=== PATIENT | female | born 1970 | race Caucasian/White ===

== ENCOUNTER 2017-06-23 16:17 | Emergency (ER) | payer BC ==
[~2017-06-23] VITALS: Ht 165.1 cm; Wt 70.3 kg
[2017-06-23] MEDS ORDERED: KEFLEX500 MG PO (16:51)
== END 2017-06-23 17:11 | disposition home or self-care (01) ==
LOC: ED 16:17
DX: S61.211A Laceration without foreign body of left index finger without damage to nail, initial encounter (principal); F17.200 Nicotine dependence, unspecified, uncomplicated; Z88.5 Allergy status to narcotic agent; X58.XXXA Exposure to other specified factors, initial encounter
CPT/HCPCS: 99283

== ENCOUNTER 2017-07-10 15:51 | Emergency (ER) | payer BC ==
[~2017-07-10] VITALS: Ht 165.1 cm; Wt 70.3 kg
[~2017-07-10 15:51] MED LIST: KEFLEX500 MG PO
--- NOTE | 2017-07-11 05:43 | EKG ---
[facility] [address] [facility] [place], [place] [address] Signed Normal sinus rhythm Normal ECG No previous ECGs available Confirmed by LANCE BRIDGES MD ([id number]) on 07/11/2017 5:43:26 AM Electronically Signed By: LANCE BRIDGES MD 07/11/17 0543 PATIENT NAME: HARESH SILVA Electrocardiogram DATE OF : 70 PHYSICIAN: LANCE BRIDGES MD REPORT #: [id number] REPORT IS CONFIDENTIAL AND NOT TO BE RELEASED WITHOUT AUTHORIZATION
== END 2017-07-10 17:28 | disposition home or self-care (01) ==
LOC: ED 15:51
DX: R00.2 Palpitations (principal); I10 Essential (primary) hypertension; F17.200 Nicotine dependence, unspecified, uncomplicated; Z88.5 Allergy status to narcotic agent
CPT/HCPCS: 71046; 80053; 84484; 85025; 93005; 93010; 99284

== ENCOUNTER 2018-08-16 03:44 | Emergency (ER) | payer BC ==
[~2018-08-16] VITALS: Ht 165.1 cm; Wt 67.6 kg
[2018-08-16] MEDS ORDERED: CARAFATE1 GM PO (03:57)
[2018-08-16] MEDS ORDERED: OMEPRAZOLE40 MG PO (03:57)
[2018-08-16] MEDS ORDERED: PERCOCET 5-3251 EACH PO (06:18)
== END 2018-08-16 06:30 | disposition home or self-care (01) ==
LOC: ED 03:44
DX: R10.13 Epigastric pain (principal); F17.200 Nicotine dependence, unspecified, uncomplicated; Z88.5 Allergy status to narcotic agent; Z79.899 Other long term (current) drug therapy
CPT/HCPCS: 74177; 80053; 81001; 83690; 85025; 99284-25; J1170; J2060; J2405; J7030; Q9967

== ENCOUNTER 2018-08-19 06:05 | Day surgery (SDC) | payer BC ==
[~2018-08-19] VITALS: Ht 165.1 cm; Wt 67.6 kg
[~2018-08-19 06:05] MED LIST changes: +CARAFATE1 GM PO; +OMEPRAZOLE40 MG PO; +PERCOCET 5-3251 EACH PO
--- NOTE | 2018-08-19 08:30 | NUR ---
08/19/18 0830 Mildred Markham 0822-PATIENT ARRIVED TO PACU ON 2L NC NONAROUSABLE. LAYING LEFT LATERAL. ABDOMEN SOFT. RR EVEN. CO2 35.
--- NOTE | 2018-08-20 07:47 | OR ---
[facility] [address] [place] [place], [place] [address] Signed DATE OF OPERATION: 08/19/2018 SURGEON: Deirdre Barrera MD PREOPERATIVE DIAGNOSIS: Unspecified mass in transverse colon. POSTOPERATIVE DIAGNOSES: 1. Unspecified mass at 42 cm (tattoo). 2. A 10 mm sessile polyp in distal right colon at 65 cm (tattoo). 3. A 4 mm polyp at 7 cm in rectum. PROCEDURES PERFORMED: 1. Colonoscopy with hot biopsy injection of tattoo at 65 and 42 cm. 2. Placement of clip at 42 cm. ESTIMATED BLOOD LOSS: None. INDICATIONS: Haresh is a 48-year-old female, I have known for quite a few years. In the last couple weeks, she has been having dull and then sharp epigastric abdominal pain. She had been to her primary care provider's office. She was started on Carafate and omeprazole. Her symptoms were not improving. Her pain had worsened, so she went to the emergency room. She had a CT scan of the abdomen and pelvis performed, and there was some abnormal thickening in the transverse colon in the central upper abdomen. There was some soft tissue density next to this unspecified colonic mass measuring around 3.8 x 22 cm in the transverse mesocolon. In addition, there are some prominent lymph nodes in the area measuring up to 2.8 x 1.2 cm. No associated obstruction. She was asked to see me the next day in the office for followup. I met with Haresh, her , and her daughter. We had a long discussion regarding the findings. We sent her for a CT scan of the chest and this was unremarkable for metastatic disease. We also sent her for a CEA level and it came back normal at 3.76. In addition, we talked about colonoscopy at length in order to evaluate the mass as well as rule out a synchronous lesion. I gave them a booklet on colonoscopy. We looked at that together in detail. We also reviewed the written instructions for the bowel prep line by line. She also understands the need for IV conscious sedation. They had expressed understanding and wished to proceed. PROCEDURE NOTE: Haresh was taken into our endoscopy suite and placed in the left lateral decubitus Electronically Signed By: DEIRDRE BARRERA MD 08/20/18 0747 PATIENT NAME: HARESH SILVA OPERATIVE REPORT DATE OF : 70 REPORT #: [id number] PHYSICIAN: DEIRDRE BARRERA MD PCP: TAMMIE LILLY MD REPORT IS CONFIDENTIAL AND NOT TO BE RELEASED WITHOUT AUTHORIZATION [facility] [address] [place], [place] [address] Signed position. She was given IV sedation with 11 mg of Versed and 200 mcg of fentanyl to cover the entire case. A digital rectal exam was performed and this was unremarkable. She had just a small polyp in the rectum, which we removed with a hot biopsy forceps. The scope had been passed and we went beyond the mass and out into the cecum itself. Her prep was quite good. We took pictures throughout for photodocumentation. We could easily see the appendiceal orifice, the tolowa dee-ni''s foot, and the ileocecal valve. Her cecum was 85 cm. The scope was slowly withdrawn back at 65 cm and what appeared to be the distal right colon was a 10 mm sessile polyp. It took several bites of the hot biopsy forceps to remove that and destroy it completely. We left a tattoo next to that to hayley its location. We slowly withdrew the scope further, and at 42 cm, we found the circumferential sessile mass. It occupies probably half if not more of the circumference of the colon. It obviously very concerning. We took several biopsies of this with our cold biopsy forceps. We then placed a tattoo next to it along with a clip to hayley its location. We will take an abdominal x-ray in recovery room. There was no diverticulosis. The rest of the colon was unremarkable. No additional lesions in the rectum. Upon retroflexion of the scope, there was no additional pathology noted above the anal canal. After this, the gas was suctioned out and the colonoscope removed. Haresh tolerated the procedure quite well. RECOMMENDATIONS: We are going to check an abdominal x-ray for a metallic clip in the recovery room. I will have Haresh back in the office between 5 and 10 days once we get the pathology report back. We specifically need to evaluate the lesion in the distal right colon to plan our surgery. I will review all this with Haresh and her family. Deirdre Barrera MD ALB/MODL /[id number] cc: Deirdre Barrera MD [facility] Jody Lilly MD Copies: DEIRDRE BARRERA MD Electronically Signed By: DEIRDRE BARRERA MD 08/20/18 0747 PATIENT NAME: HARESH SILVA ALANIS OPERATIVE REPORT DATE OF : 70 REPORT #: [id number] PHYSICIAN: DEIRDRE BARRERA MD PCP: TAMMIE LILLY MD REPORT IS CONFIDENTIAL AND NOT TO BE RELEASED WITHOUT AUTHORIZATION [address] [place], [place] [address] Signed TAMMIE LILLY MD ~ Electronically Signed By: DEIRDRE BARRERA MD 08/20/18 0747 PATIENT NAME: HARESH SILVA OPERATIVE REPORT DATE OF : 70 REPORT #: [id number] PHYSICIAN: DEIRDRE BARRERA MD PCP: TAMMIE LILLY MD REPORT IS CONFIDENTIAL AND NOT TO BE RELEASED WITHOUT AUTHORIZATION
== END 2018-08-19 09:35 | disposition home or self-care (01) ==
LOC: DS 06:05 → OPS 06:05 → DS 06:45 → OPS 09:35
PROVIDERS: Colon & Rectal Surgery
PROC: 0DBK8ZZ Excision of Ascending Colon, Via Natural or Artificial Opening Endoscopic (ICD-10-PCS; 2018-08-19)
PROC: 0DBP8ZZ Excision of Rectum, Via Natural or Artificial Opening Endoscopic (ICD-10-PCS; 2018-08-19)
PROC: 0DBE8ZZ Excision of Large Intestine, Via Natural or Artificial Opening Endoscopic (ICD-10-PCS; 2018-08-19)
PROC: 3E0H8GC Introduction of Other Therapeutic Substance into Lower GI, Via Natural or Artificial Opening Endoscopic (ICD-10-PCS; principal; 2018-08-19 06:45)
DX: C18.9 Malignant neoplasm of colon, unspecified (principal); D12.2 Benign neoplasm of ascending colon; D12.6 Benign neoplasm of colon, unspecified; K62.1 Rectal polyp; F17.210 Nicotine dependence, cigarettes, uncomplicated; Z88.5 Allergy status to narcotic agent
CPT/HCPCS: 74018; 84703; 99153; G0500; J2250; J3010; J7120

== ENCOUNTER 2018-08-30 10:41 | Inpatient (IN) | payer BC ==
[~2018-08-30] VITALS: Ht 165.1 cm; Wt 67.6 kg
--- NOTE | 2018-09-03 14:34 | NUR ---
09/03/18 1434 Ani Marcos 1423 PATIENT ARRIVES TO PACU SLEEPING, OPENS EYES WITH VERBAL STIMULI, BUT NON VERBAL. RESP EVEN AND UNLABORED, MASK AT 6 LITERS. 1430 PATIENT AWAKE OFF/ON, MOANING, C/O PAIN. RESP EVEN AND UNLABORED, MASK OFF, ROOM AIR SATS 100%.
--- NOTE | 2018-09-03 15:49 | NUR ---
PT REPORTS SHARP PAIN OF 10/10 TO ABDOMEN, 0.5MG IV DILAUDID ADMINISTERED -SEE EMAR. PT MAINTAINING O2 SATS IN MID 90'S ON RA. TERESA DRAIN EMPTIED OF SS DRAINAGE. CALL LIGHT ANDH20 IN REACH. JAEL SMALL AMOUNT OF DRAINAGE SURROUNDING TERESA DRAIN SITE SO DSG REENFORCED WITH 4X4 GUAZE. PT DENIES NAUSEA, SOB OR ANY OTHRE SYMPTOMS. ICE TO ABDOMEN.
--- NOTE | 2018-09-03 16:03 | NUR ---
Admin dilaudid 0.5mg ivp for reports of 10/10 abd pain.
--- NOTE | 2018-09-03 16:37 | NUR ---
PT REPORTS SHARP PAIN THAT IS BACK UP TO 10/10 TO ABDOMEN. PRN IV DILAUDID ADMINISTERED SEE EMAR. PT CONTINUES TO DENY ANY OTHER SYMPTOMS, NEEDS OR CONCERNS. CALL LIGHT AND H20 IN REACH. CPOX READING REMAINS IN MID 'S.
--- NOTE | 2018-09-03 17:25 | NUR ---
Pt reports 10/10 sharp abd pain. Pt requested and received prn iv dilaudid. Pt remains on cpox. Call light and h20 in reach. No further needs/concerns voiced. family at bedside.
--- NOTE | 2018-09-03 17:28 | NUR ---
PATIENT RESTING IN BED. IN ROOM. VITAL SIGNS AND I&O DONE. PATIENT COMPLAINS ABOUT PAIN. RN NOTIFIED. CALL LIGHT WITHIN REACH. NO OTHER NEEDS AT THIS TIME
--- NOTE | 2018-09-03 17:33 | NUR ---
MED REC COMPLETE
--- NOTE | 2018-09-03 18:23 | NUR ---
PT RESTING SUPINE IN BED, ALERT AND ORIENTED. PT REPORTS 9/10 PAIN WILL ADMINISTER PRN OPIOD. CALL LIGHT AND H20 IN REACH. O2 SAT MAINTAINING IN MID 90'S ON ROOM AIR. CPOX REMAINS IN PLACE.
--- NOTE | 2018-09-03 19:00 | NUR ---
ROUNDED ON PATIENT RESTING IN BED WITH VISITORS AT BEDSIDE. ICE PACK IN PLACE. SCDs IN PLACE. CPOX,WNL. WHITE BOARD UPDATED. PT APPEARS TO BE UNCOMFORTABLE IN BED WITH ABD GUARDING AND TENSING. DAY SHIFT RNCRYSTAL ON PHONE WITH DR. BARRERA FOR POTENTIAL PLAN OF ENTERPRISE SYSTEMS ADMINISTRATOR PUMP FOR PT. CALL LIGHT WITHIN REACH. POSSESSIONS AT BEDSIDE. PT DENIES ANYMORE NEEDS AT THIS TIME.
--- NOTE | 2018-09-03 19:49 | NUR ---
patient says she is still thirsty so i gave her a half cup of ice and in 4hrs she will recieve the other half. i also gave patient a hard candy. she stated she was in pain and GOMEZ Lennon was notified. patients asked about the DIAGRAMMER AND SEAMER pump and i informed him we were waiting on the DRs order.
--- NOTE | 2018-09-03 20:15 | NUR ---
ASSESSMENT COMPLETE. MEDICATIONS ADMINISTERED PER ORDER. PT REPORTS PAIN A "OVER 10" ON A 10/10 PAIN RATING SCALE. SOUND RECORDING TECHNICIAN ADMINISTERED PRN PAIN MEDICATION PER ORDER WELL. AT 2039 PT REPORTS PAIN DECREASED TO A "5/10" IN ABD. PT DENIES NAUSEA AND FLATUS. PT REPORTS FEELING "SLIGHTLY BLOATED". CLEAR LUNG SOUNDS NOTED, DIM/CLEAR BASES, CPOX WNL. DRAIN SPONGES PLACED AROUND INSERTION SITE OF TERESA DRAIN. DRAINAGE EMPTIED FROM TERESA DRAIN, DRAINAGE CAN BE DESCRIBED SEROSANGUINOUS IN COLORATION THAT IS SLIGHTLY MORE ON THE PINK/RED SIDE. MIDLINE INCISION DRESSING ON ABD IS CDI, WITH SMALL AMOUNT OF SHADOWING PRESENT AROUND INSERTION SITE OF TERESA DRAIN. HYPO ACTIVE BOWEL TONES NOTED. SCDS IN PLACE. ICE IN PLACE ON ABD PER ORDER. PT DENIES CHEST PAIN, SHORTNESS OF BREATH OR DIFFICULTY BREATHING. INTITALLY WHEN NURSING STAFF ROUNDED ON PT, PATIENT WAS VISIBLY UNCOMFORTABLE/GRIMACING, AFTER INTERVENTIONS PT'S APPEARANCE APPEARED MORE COMFORTABLE. PT DENIES ANYMORE NEEDS AT THIS TIME. CALL LIGHT WITHIN REACH. POSSESSIONS AT BEDSIDE. PT TOLERATED ICE CHIPS AND HARD CANDY PROVIDED PER ORDER. IV ASSESSED, WNL.
--- NOTE | 2018-09-03 20:20 | NUR ---
SPOKE WITH DR BARRERA ABOUT NATIONAL SHORTAGE OF DILAUDID FOR WOOD MILLER. NEW ORDERS RECEIVED AND ENTERED TORBC.
--- NOTE | 2018-09-03 21:50 | NUR ---
ROUNDED ON PATIENT RESTING AWAKE IN BED. BUCKLE STRINGER PUMP SET UP AND INFUSING PER ORDER. EDUCATION PROVIDED TO PATIENT, PT EXPRESSED UNDERSTANDING OF BUCKLE STRINGER, PT DENIES QUESTIONS. BUCKLE STRINGER BUTTON WITHIN REACH OF PATIENT. RR: 16, PT AWAKE AND ALERT, PAIN "6/10" IN ABD, O2 SATS: 94% ON ROOM AIR. FRESH ICE PACK PROVIDED TO PATIENT. CALL LIGHT WITHIN REACH. PT DENIES ANYMORE NEEDS AT THIS TIME.
--- NOTE | 2018-09-03 21:52 | NUR ---
patients VS and I&Os are complete.
--- NOTE | 2018-09-03 22:57 | NUR ---
ROUNDED ON PATIENT RESTING IN BED, CPOX IS WNL. PT RATES PAIN A "4/10". RR IS 16. METEOROLOGICAL ENGINEER BUTTON IS WITHIN REACH OF PATIENT. PT DENIES ANYMORE NEEDS AT THIS TIME. CALL LIGHT WITHIN REACH.
--- NOTE | 2018-09-04 01:05 | NUR ---
PT AMBULATING IN HALLWAY WITH FORMS ANALYST AT THIS TIME.
--- NOTE | 2018-09-04 01:47 | NUR ---
ROUNDED ON PATIENT RESTING IN BED WITH EYES CLOSED, RESPIRATORY RATE IS EVEN AND UNLABORED. NO SIGN OF TENSING OR GRIMACING. RR: 14. CPOX, WNL. CALL LIGHT WITHIN REACH.
--- NOTE | 2018-09-04 03:15 | NUR ---
ASSESSMENT COMPLETE. PT DENIES CHEST PAIN, SHORTNESS OF BREATH, OR DIFFICULTY BREATHING. PT REPORTS PAIN IN ABD IS "6/10". SMALL AMOUNT OF SHADOWING ON MIDLINE DRESSING. SMALL AMOUNT OF SEROSANGUINOUS DRAINAGE AROUND TERESA DRAIN THAT CAN BE DESCRIBED TO BE MORE ON THE PINK/RED SIDE. NEW DRESSING PLACED AROUND TERESA INSERTION SITE WITH DRAIN SPONGES. PT STATES THAT MARKETING FINANCIAL ANALYST PUMP HAS BEEN ADEQUATELY CONTROLLING PAIN, HOWEVER PT MAKES OCCASIONAL FACIAL GRIMACES, PROVIDED EDUCATION TO PATIENT ABOUT MARKETING FINANCIAL ANALYST PUMP, PT EXPRESSED UNDERSTANDING. THIS RN ASSISTED PATIENT IN REPOSITIONING IN BED. CLEAR LUNG SOUNDS NOTED, CPOX IS WNL, HOWEVER PATIENT STATES THAT IT IS DIFFICULT TO TAKE FULL BREATHS, EDUCATION PROVIDED TO PT ABOUT USE OF INCENTIVE SPIROMETER BY CHARGE NURSE JONATHAN, PT EXPRESSED UNDERSTANDING. ICE IN PLACE. POSSESSIONS AT BEDSIDE. MARKETING FINANCIAL ANALYST BUTTON WITHIN REACH. CALL LIGHT WITHIN REACH. PT DENIES ANYMORE NEEDS AT THIS TIME.
--- NOTE | 2018-09-04 05:40 | NUR ---
ROUNDED ON PT RESTING AWAKE IN BED WITH FACIAL GRIMACING. PT RATES PAIN IS A "6/10" IN ABD. REPLACED DEFENSE ANALYST SYRINGE PER ORDER DUE TO PREVIOUS SYRINGE BEING EMPTY. RR: 18. ALERT AND ORIENTED. THIS RN AND CHARGE NURSE RN ASSISTED PT TO CHAIR. NEW GOWN PLACED ON PT. PROVIDED EDUCATION TO PT ABOUT USE OF DEFENSE ANALYST BUTTON, PT ACKNOWLEDGED AND EXPRESSED UNDERSTANDING OF EDUCATION. CALL LIGHT WITHIN REACH. DEFENSE ANALYST BUTTON WITHIN REACH. NEW ICE PACK PROVIED. PT DENIES ANYMORE NEEDS AT THIS TIME.
--- NOTE | 2018-09-04 06:25 | NUR ---
NOTIFIED DR. BARRERA ABOUT PT'S PAIN MANAGMENT AND DRAINAGE; FROM AND AROUND TERESA DRAIN. NEW ORDERS RECIEVED, ORDERS VERIFIED VIA READ BACK METHOD.
--- NOTE | 2018-09-04 06:55 | NUR ---
ROUNDED ON PATIENT SITTING UP IN CHAIR. PT REPORTS PAIN A "6/10", SCHEDULED MEDICATION ADMINISTERED PER ORDER. CALL LIGHT WITHIN REACH. PT DENIES ANYMORE NEEDS AT THIS TIME.
--- NOTE | 2018-09-04 08:10 | OR ---
[facility] [address] [place], [place] [address] Signed DATE OF OPERATION: 09/03/2018 SURGEON: Deirdre Barrera MD PREOPERATIVE DIAGNOSES: 1. Distal transverse colon. 2. Dysplastic polyp, mid right colon. POSTOPERATIVE DIAGNOSES: 1. Distal transverse colon. 2. Dysplastic polyp, mid right colon. PROCEDURES: 1. Extended right colectomy with stapled [id number] ileocolic anastomosis. 2. Placement of #10 flat drain retrogastric space gastric space, in was 2100 mL of crystalloid, out was 300 mL urine over 3 hours and 125 mL of blood. 3. Takedown of splenic flexure. FINDINGS: We could easily see our tattoos in the mid right colon and mid to distal transverse colon. She did have palpable lymphadenopathy in the transverse mesocolon. All palpable lymphadenopathy came out en bloc. Because of the two lesions, we decided that an extended right colectomy was more appropriate since our lesion in the right colon has dysplastic cells. A standard [id number]-wf-[id number] stapled anastomosis was performed. No evidence of any metastatic disease in the liver of the mesentery or the serosal surfaces. INDICATIONS: Haresh is a 48-year-old female whom I have known for many years in our community. She has been having pain in her epigastric area. The Carafate and omeprazole were not helping. She ended up going to the emergency room. A CT scan showed some abnormal thickening in the transverse colon along with some density alongside the colon and lymphadenopathy. However, there was no obstruction. I had met her in my office that same morning and a few days later, we had her in the endoscopy suite for a full colonoscopy after a full bowel prep. Indeed, she had a mass at 42 cm. We placed a clip next to that along with her tattoo and our abdominal x-ray in recovery room showed this to be in the mid to distal transverse colon. In addition, we found a sessile polyp in the mid to distal right colon and we placed a tattoo in that area as well. The pathology came back with some dysplastic cells. We sent her for a CEA level and it came back high normal at 3.76. She had a CT scan of her chest and there was no evidence of Electronically Signed By: DEIRDRE BARRERA MD 09/04/18 0810 PATIENT NAME: HARESH SILVA OPERATIVE REPORT DATE OF : 70 REPORT #: [id number] PHYSICIAN: DEIRDRE BARRERA MD PCP: TAMMIE LILLY MD REPORT IS CONFIDENTIAL AND NOT TO BE RELEASED WITHOUT AUTHORIZATION [facility] [address] [place], [place] [address] Signed any metastatic disease in the chest. I had met with Harehs and her family several times. We reviewed the above findings. I gave them a [employer] brochure on colorectal polyps and cancer. We discussed the concept of two synchronous lesions. Initially, we talked about a transverse colectomy, but we also discussed the possibility of an extend right colectomy given her two lesions. We had reviewed the expected intraop and postop course. They understand there is risk including, but not limited to bleeding, infection, scarring, change in contour of the skin, damage to bowel, anastomotic leak, incisional hernias, and other unforeseen comorbidities including pneumonias, heart attacks, and deep vein thrombosis. They had expressed understanding and wished to proceed. PROCEDURE NOTE: I met with Haresh in our preop area. Although, anxious Haresh has been very strong in her disposition. She actually had her family leave and go home, so she could focus and concentrate. After our discussion, then we took Haresh into the operating room and we placed her in a supine position under general endotracheal tube anesthesia. She had received preoperative antibiotics along with subcutaneous heparin. SCDs were utilized. A Eden catheter was inserted with return of clear yellow urine without difficulty. She then underwent bilateral tap blocks by our nurse try out person. She was then prepped and draped in the usual sterile fashion. A standard periumbilical midline incision was made and carried through the abdomen with the help of the cautery. The abdomen was explored and we could easily see our two tattoos and could easily palpate both lesions. We could easily palpate the lymphadenopathy in transverse mesocolon. We did not see any peritoneal studding nor see or feel any lesions over the liver. After this, we placed our Bookwalter retractor and then we freed up the splenic flexure with the help of the cautery down to the mid left colon. This gave us plenty of length on the left side. I then switched sides of the table and similarly took down the right hepatic flexure all the way down past the cecum and a short distance from the terminal ileum. The mesocolon was divided between Pean clamps and 0 Vicryl ties. Multiple clips were also used during the dissection. All palpable lymphadenopathy was removed. We divided the distal portion of the transverse colon with a linear stapler as well as the terminal ileum. The entire specimen was then passed off the field and opened on the back table by our circulating nurse. Again, both lesions were easily visible. The wound was then irrigated and suctioned out until clear. We placed a #10 flat drain behind the stomach and over top of the pancreas in the duodenum. This was brought out through the right upper quadrant laterally and held in place with 2-0 nylon suture at the level of skin. We had irrigated out the abdomen until clear. We then brought the terminal ileum up to the distal transverse colon. We performed a standard sgwp-el-ercw stapled anastomosis with THELMA 75 mm stapler. We brought the mesenteric size together with the help of interrupted silk sutures. We opened the terminal ileum and the colon on the corners and we brought that together with stapler and then added some additional silk Lembert stitches over top of the staple line in the crotch of the anastomosis. We used a TA-60 Electronically Signed By: DEIRDRE BARRERA MD 09/04/18 0810 PATIENT NAME: HARESH SILVA OPERATIVE REPORT DATE OF : 70 REPORT #: [id number] PHYSICIAN: DEIRDRE BARRERA MD PCP: TAMMIE LILLY MD REPORT IS CONFIDENTIAL AND NOT TO BE RELEASED WITHOUT AUTHORIZATION [facility] [address] [place], [place] [address] Signed stapler to completely remove the previous two staple lines on the end of the terminal ileum and the colon as well as closed the holes in the ileum and the colon. Gentle cautery was undertaken along the staple line and several areas were oversewn with silk suture. The anastomosis is widely palpably patent. We then closed the mesenteric rent with a running #0 Vicryl suture. This brought stomach back down over the pancreas and over top of that drain. All bowel was deemed to be in good position. We irrigated the abdomen once again and suctioned out until clear. The left lateral portion of the omentum that was remaining was brought across the small bowel towards the midline. The midline fascia was then closed with interrupted #1 PDS sutures. The wound was irrigated and suctioned out until clear. We brought the dermis back together with interrupted 2-0 Monocryl sutures. The skin edges were then reapproximated with brianna. Dry gauze and tape were then applied. Haresh's Eden catheter was left in place. She was awakened from anesthesia, extubated in the OR, and taken to recovery room in stable condition. Deirdre Barrera MD ALB/MODL /[id number] cc: MD Tammie Bryson MD Copies: DEIRDRE BARRERA MD, LOHITH VEERAPPA MD ~ Electronically Signed By: DEIRDRE BARRERA MD 09/04/18 0810 PATIENT NAME: HARESH SILVA OPERATIVE REPORT DATE OF : 70 REPORT #: [id number] PHYSICIAN: DEIRDRE BARRERA MD PCP: TAMMIE LILLY MD REPORT IS CONFIDENTIAL AND NOT TO BE RELEASED WITHOUT AUTHORIZATION
--- NOTE | 2018-09-04 08:35 | NUR ---
IN TO SEE PATIENT PT SITTING UP IN CHAIR, MODERATE SS DRAINAGE FROM TERESA SITE SO SATURATED DSG REMOVED AND SITE CLEANSED WITH NS. DR BARRERA IN TO SEE PATIENT STATES DSGS MAY BE REMOVED AND PT MAY SHOWER WHEN SHE IS READY. PT PROVIDED WITH 4 OZ OF ICE CHIPS PER HER REQUEST AND A BAG OF ICE FOR ABDOMEN. PER MD KYLE ALSO REMOVED AFTER 10CC OF STERILE WATER REMOVED FROM [place], PT TOLERATED WELL. CALL LIGHT AND H2O IN REACH AND PT DNEIES FURTHER NEEDS/CONCERNS. FAMILY IN TO SEE PATIENT. VSS.
--- NOTE | 2018-09-04 09:04 | NUR ---
PT SITITNG UP IN CHAIR, PT STATES PAIN IS TOLERABLE AT 4/10 TO ABD. TERESA DRAIN EMPTIED, ASSESSMENT COMPLETED. IV TYLENOL INFUSING -SEE EMAR. PT DENIES FURTHER NEEDS/CONCERNS. CALL LIGHT AND H20 IN REACH.
--- NOTE | 2018-09-04 10:10 | NUR ---
PT AMBULATING IN HALLS, STATES PAIN IS TOLERABLE. PT TOLERATES TWO LAPS AROUND NURSES STATION AND BACK TO BED, SCD'S APPLIED AND IV PUMP PLUGGED BACK INTO WALL. CALL LIGHT AND H2O IN REACH. PT DENIES FURHTER NEEDS/CONCERNS.
--- NOTE | 2018-09-04 11:45 | NUR ---
PT ASSISTED UP TO BATHROOM WITH SBA. PT DENIES DIZZINESS AND AMBULATES WITH SLOW BUT STEADY GAIT AND AGREES TO USE CALL LIGHT WHEN FINISHED.
--- NOTE | 2018-09-04 11:56 | NUR ---
PT USES CALL LIGHT AND WAS ASSISTED BACK TO BED IV AND CPOX PLUGGED BACK IN. CALL LIGHT AND H20 IN REACH AND PT DENIES FURTHER NEEDS/CONCERNS. O2 SAT 98% ON ROOM AIR AND PT STATES PAIN IS TOLERABLE. FAMILY AT BEDSIDE VISITING WITH PATIENT.
--- NOTE | 2018-09-04 15:02 | NUR ---
IV SCHOOL OPERATIONS MANAGER PUMP BEEPING, SCHOOL OPERATIONS MANAGER MORPHINE VIAL EMPTY. MORPHINE VILE REPLACED AND SHIFT TOTALS CLEARED WITH GOMEZ DISLA. cALL LIGHT AND H20 IN REACH.
--- NOTE | 2018-09-04 16:57 | NUR ---
IV PUMP BEEPING IN TO SEE PATIENT, PUMP READS DISTAL OCCLUSION, FLUSHED AND STRAIGHTENED IV TUBING AND IV MAINENANCE FLUIDS NOW INFUSING AD ORDERED RATE. PT STATES SHE IS COMFORTABLE. 8 OZ OF ICE CHIPS PROVIDED PER HER REQUEST. CALL LIGHT AND H2O IN REACH. PT DENIES FURTHER NEEDS/CONCERNS.
--- NOTE | 2018-09-04 18:25 | NUR ---
IN TO CHECK ON PT. PT RESTING SUPINE IN BED WATCHING TV. VS'S TAKEN AN DI/O'S DOCUMENTED. HAT NOT IN TOILET PT REPORTS TKAING HAT OUT TO HAVE BM BUT WAS UNABLE TO HAVE BM. REEDUCATED PT ON IMPORTANCE OF USING HAT WHEN VOIDING SO URINE CAN ACURATLEY BE DOCUMENTED. VS'S STABLE. PT DENIES SOB AND STATES PAIN IS WELL CONTROLLED WITH DISTRICT COMMERCIAL SUPERINTENDENT PUMP. CALL LIGHT AND ICE CHIPS IN REACH. PT DENIES FURTHER NEEDS/CONCERNS. FAMILY AT BEDSIDE VISITING PT AND PT WATCHING TV AND APPEARS TO BE IN NO ACUTE DISTRESS.
--- NOTE | 2018-09-04 18:44 | NUR ---
PT APPEARED TO HAVE A GOOD DAY. PT HAD TOLERABLE PAIN WITH FILE CONVERSION OPERATOR MORPHINE PAIN PUMP AND SCHEDULED TORADOL AND OFIRMEV. IV PATENT WITH MAINTENANCE FLUIDS RUNNING. PT AMBULATES IN HALLS WITH SBA. O2 SATS MAINTAINED IN MID TO HIGH 90'S PER CPOX THROUGHOUT THE SHIFT. PT DENIES NASUEA, SOB OR ANY OTHER SYMPTOMS TODAY. TERESA DRAINING SS DRAINAGE; APPROX 70MLS THIS SHIFT. PT TOLERATED ICE CHIPS AND HARD CANDY TODAY DENIES FEELING BLOATED AND REPORTS INCREASED APPETITE. BT'S ACTIVE BUT PT DENIES HAVING ANY FLATULANCE THIS SHIFT. PT HAS BEEN VOIDING CLEAR YELLOW URINE. AFEBRILE THROUGHOUT THE DAY. MIDLINE INCISION WELL APPROXIMATED WITH NO S/SX'S OF INFECTION.
--- NOTE | 2018-09-04 19:13 | NUR ---
IN ROOM FOR REPORT, PT IS AWAKE IN BED AND HAS VISITORS IN THE ROOM. SHE DENIES NEEDS AT THIS TIME. CALL LIGHT IS WITHIN REACH.
--- NOTE | 2018-09-04 20:35 | NUR ---
IN ROOM TO ASSESS PT AND ADMINISTER MEDICATIONS. PT REPORTS LUIS E ARE COMING OUT OF HER INCISION. ONE OF THE LUIS E UNDER THE UMBILICUS IS LIFTING OUT AND NOT VERY SECURE AND THE BOTTOM DISTAL STAPLE IS LIFTED BUT STILL IN. COVERED MIDLINE INCISION BACK UP WITH ABD PAD TO PROTECT LUIS E. GAUZE AROUND TERESA DRAIN HAS A SCANT AMOUNT OF SEROSANGUINOUS DRAINAGE ON IT AND PT REPORTS WHEN SHE IS UP WALKING IT DRIPS. NEW GAUZE IN PLACE AND REINFORCED WITH FOAM TAPE. PT EXPRESSES ANXIETY ABOUT THE UNCERTAINTY OF HER PROGNOSIS. GAVE WHAT INFORMATION IS AVAILABLE BUT ADVISED HER TO ASK THE DOCTOR QUESTIONS WHEN HE SEES HER TOMORROW. SHE WOULD LIKE TO TAKE A WALK, WILL HAVE DORENE SERNA ASSIST HER. SHE DENIES FURTHER NEEDS. CALL LIGHT IS CLOSE.
--- NOTE | 2018-09-04 21:27 | NUR ---
patient wanted to take a walk, we did 4 laps. She was expressing her concern about her health and how she felt she wasnt getting a lot of info about whats going on. I informed GOMEZ Armenta and she is going to do some digging and see if she is able to answer some questions.
--- NOTE | 2018-09-04 22:40 | NUR ---
VS & I&O ENTERED. CHANGED GAUZE AROUND TERESA DRAIN WHICH HAD A SMALL AMOUNT OF SEROSANGUINOUS FLUID. EMPTIED TERESA DRAIN 25 MLS. PT HAS A VISITOR IN THE ROOM AT THIS TIME. SHE REPORTS PAIN AT 6/10. REMINDED HER TO USE HER ENERGY OPERATIONS VICE PRESIDENT PUMP NEEDED. PT DENIES FURTHER NEEDS AT THIS TIME. CALL LIGHT IS WITHIN REACH.
--- NOTE | 2018-09-05 00:55 | NUR ---
PT IS RESTING WITH EYES CLOSED, RR IS EVEN AND NONLABORED. CPOX IN PLACE AND CALL LIGHT IS WITHIN REACH.
--- NOTE | 2018-09-05 02:07 | NUR ---
PT IS RESTING WITH EYES CLOSED, RESPIRATIONS ARE EVEN AND NONLABORED, CPOX ON. CALL LIGHT IS WITHIN REACH.
--- NOTE | 2018-09-05 03:22 | NUR ---
PT IS RESTING WITH EYES CLOSED, RESPIRATIONS ARE EVEN AND NONLABORED ON CPOX. CALL LIGHT IS WITHIN REACH.
--- NOTE | 2018-09-05 05:16 | NUR ---
PT IS RESTING COMFORTABLY AT THIS TIME, SHE DENIES NEEDS. CALL LIGHT IS CLOSE.
--- NOTE | 2018-09-05 06:35 | NUR ---
ASSISTED PT TO THE RESTROOM 1PA. SHE WAS IN A LOT OF PAIN 10/27 BECAUSE SHE SLEPT WELL AND DID NOT PUSH HER MANAGER STRATEGIC DEVELOPMENT BUTTON BEFORE GETTING OUT OF BED. SHE IS BACK IN BED AT THIS TIME AND HAS FRESH ICE IN PLACE. SHE DENIES FURTHER NEEDS, CALL LIGHT IS WITHIN REACH.
--- NOTE | 2018-09-05 07:10 | NUR ---
PT RESTING SUPINE IN BED REPORTS SOME NAUSEA AND PAIN GOMEZ CASTILLO IN TO ADMINISTER ZOFRAN. CALL LIGHT IN REACH. PT ENCOURAGED TO PUSH SUPPORT SERVICES REP BUTTON WHEN SHE IS HAVING PAIN UNTIL IT IS AT A TOLERABLE LEVEL AND PT ADMITS TO NOT HAVING PRESSED IT MUCH THROUGHOUT THE NIGHT. FRESH ICE BAG APPLIED TO ABDOMEN PER GOMEZ CASTILLO. BEDSIDE REPORT RECEIVED. SUPPORT SERVICES REP PUMP IN REACH. PT DENIES FURTHER NEEDS/CONCERNS AND AGREES TO USE CALL LIGHT IF PAIN LEVEL AND NAUSEA DON'T SUBSIDE.
--- NOTE | 2018-09-05 09:12 | NUR ---
Pt resting supine in bed, eyes closed, pulse oximiter reading 86% on room air, pt encouraged to take some deep breathes and o2 sat returns to mid 90's but within a minute pt desats again to high 80's to low 90's so pt placed on 2lpnc a this time and is satting in mid 90's. Pt denies pain. Pt encouraged not to press sales mgr button unless pain is becomming intolerable and pt agrees.
--- NOTE | 2018-09-05 10:33 | NUR ---
PT REPORTS BURNING TO RFA IV SITE. ATTEMPTED TO FLUSH WITH NS BUT PT REPORTS INCREASED BURNING WITH SMALL AMOUNT OF NS. FLUIDS PLACED ON STANDBY PENDING NEW IV START. IV SITE DOES NOT APPEAR RED, OR SWOLLEN AND PT DENIES NUMBNESS OR TINGLING. GOMEZ GARNETT IN TO ATTEMPT NEW IV START. CALL LIGHT AND H2O IN REACH. PT DENIES FURTHER NEEDS/CONCERNS.
--- NOTE | 2018-09-05 12:20 | NUR ---
Pt resting supine in bed, was assisted up to restroom per her request. Pt reports increased pain today over all. Pt educated that this may be because she was receiving iv tylenol and iv toradol yesterday and that this is no longer ordered. Pt states pain is tolerable at rest and that she hasn't been pushing laundrette owner pump as often as she could. Pt encouraged to use laundrette owner pump if pain begins to worsen/as needed. Call light and h2o in reach. Pt denies further needs/concerns.
--- NOTE | 2018-09-05 14:05 | NUR ---
PT RESTING SUPINE IN BED, ALERT AND ORIENTED AND WATCHING TV, STATES PAIN IS TOLERABLE AND DENIES NAUSEA OR SOB. ASSESSMENT COMPLETED. CALL LIGHT AND H20 IN REACH. PT MAINTAINING SATS IN MID TO HIGH 90'S ON 2LPNC AND DENIES NEEDS/CONCERNS AT THIS TIME.
--- NOTE | 2018-09-05 15:48 | NUR ---
PT REPORTS PAIN OF 6/10, MORPHINE DIRECTOR OF VOCATIONAL TRAINING EMPTY SO MORPHINE VIAL REPLACED AND DOSE VERIFIED WITH GOMEZ MCKEON. PT ASSISTED UP TO RESTROOM WITH SBA AND BACK TO BED CPOX IN PLACE READS MID 90'S ON 1LPNC. PT IS ALERT AND ORIENTED WITH RR 16. CALL LIGHT AND H20 IN REACH. WARM BLANNKET PROVIDED FOR COMFORT.
--- NOTE | 2018-09-05 18:25 | NUR ---
PT UP TO AMBULATE IN HALLWAY WITH FAMILY. PT STEADY ON FEET.
--- NOTE | 2018-09-05 18:42 | NUR ---
Pt assisted back into bed after ambulating a lap around nursing stations. Pt states she tolerated ambulating well with slow but steady gait and only sba. Call light in reach and cpox back in place and scds on as well. Pt denies further needs/concerns.
--- NOTE | 2018-09-05 19:00 | NUR ---
SHIFT REPORT RECEIVED FROM DAYSHIFT GOMEZ DUBOSE AT BESIDE. PT RESTING IN BED AND IS AWAKE. CPOX IN PLACE WITH 1LNC. O2 SAT 95%, HR 68. FAMILY IN ROOM. PT DENIES ADDITIONAL NEEDS. CALL LIGHT AND SEX WORKER OR ESCORT PUMP IN REACH.
--- NOTE | 2018-09-05 20:11 | NUR ---
NEW BAG OF IV FLUIDS INFUSING PER MD ORDERS, IV SITE WNL. PT PREPARING TO AMBULATE IN HALLWAY WITH DAUGHTERS. DENIES NEEDS AT THIS TIME, CALL LIGHT IN REACH.
--- NOTE | 2018-09-05 20:15 | NUR ---
ASSESSMENT COMPLETE, SCHEDULED MEDICATIONS GIVEN (SEE EMAR). VSS, PT ON CPOX. 1LNC IN PLACE. NO DISTRESS NOTED. VOCAL ARTIST PUMP DOSE VERIFIED BY THIS RN AND CLEARED WITH 15.4 MG TOTAL. SECOND RN MARCELA IN ROOM FOR CLARIFICATION. PT A/OX4, RATES PAIN 4-5, DESCRIBES TOLERABLE. ABDOMINAL INCISION OPEN TO AIR, WELL APPROXIMATED, LUIS E IN PLACE. TERESA DRAINED BY KAREEM JULY AND DOCUMENTED, SEROSANGUINEOUS TO SANGUINEOUS IN COLOR. PT STATES, "I FEEL LIKE MY BELLY'S HARD". ABDOMEN ASSESED, NO OBVIOUS DEFORMATION OR DISCOLORATION NOTED. WILL MONITOR. CHICKEN BROTH AT BEDSIDE PER PT REQUEST. NO FURTHER NEEDS, CALL LIGHT IN REACH.
--- NOTE | 2018-09-05 21:00 | NUR ---
HELPED PT STAND AT THE SIDE OF THE BED WHILE I FIXED HER BED. HELPED HER GET REPOSITIONED BACK INTO BED. BEDSIDE TABLE AND CALL LIGHT IN REACH.
--- NOTE | 2018-09-05 21:46 | NUR ---
ROUNDED CHARGE. PATIENT IS RESTING IN BED. PATIENT DENIES ANY COMMENTS, QUESTIONS OR CONCERNS. NO NEED NOTED.
--- NOTE | 2018-09-05 22:20 | NUR ---
PT AMBULATING IN HALLWAY IN HALLWAY WITH DAUGHTERS. PT TOLERATING AMBULATION WELL, DENIES NEEDS AT THIS TIME.
--- NOTE | 2018-09-06 00:45 | NUR ---
MORPHINE INFORMATION ASSURANCE ANALYST PUMP CLEARED AND REPLACED. DOSE VERIFIED BY THIS RN AND FIELD HAULER. PT REPORTS 6/10 PAIN. PT INSTRUCTED TO USE INFORMATION ASSURANCE ANALYST BUTTON IF NEEDED. CALL LIGHT AND INFORMATION ASSURANCE ANALYST BUTTON IN REACH. IV FLUIDS INFUSING PER MD ORDERS, IV SITE WNL.
--- NOTE | 2018-09-06 01:31 | NUR ---
CPOX ALARMING. PT ON RA, O2 SAT MID 80'S. PT PLACED ON 1LNC, O2 SAT MAINTAINING IN UPPER 90'S. HR 58. PT REPORTS PAIN IN ABDOMEN, PUSHED TURBINATED BONE GRINDER PUMP. PT DENIES FURTHER NEEDS. ICE PACK IN PLACE TO ABDOMEN. CALL LIGHT IN REACH. IV FLUIDS INFUSING PER MD ORDERS.
--- NOTE | 2018-09-06 02:05 | NUR ---
ASSESSMENT COMPLETE, NO NEW CONCERNS OR ISSUES. PT A/OX4, CPOX IN PLACE WITH 1LNC. PT REPORTING INCREASE IN PAIN, FACIAL GRIMACING NOTED. PRN IV TYLEOL ADMINISTERED. IV SITE WNL. IV FLUIDS PER MD ORDERS ALSO INFUSING. INCISION SHANNA, WELL APPROXIMATED, LUIS E NOTED. TERESA DRAIN EPTIED, 55 MLS NOTED, SEROSANGUINEOUS IN COLOR. DRESSING TO TERESA DRAIN CDI. PT DENIES ADDITIONAL NEEDS. CALL LIGHT IN REACH.
--- NOTE | 2018-09-06 05:23 | NUR ---
PT SLEPT ON AND OFF THIS SHIFT. PT A/OX4, VSS. CPOX IN PLACE. PT ON 1LNC PRN FOR DESAT R/T ARBOR END MAINSPRING FORMER MORPHINE AND WHEN SLEEPING. PT SBA WITH AMBULATION, USES CALL LIGHT APPROPERAITELY. NPO, CAN HAVE 1 CUP CLEAR LIQUIDS Q8H. D5LR @100MLS/HR, IV SITE WNL. ARBOR END MAINSPRING FORMER PUMP IN PLACE. PAIN ALSO CONTROLLED WITH PRN TORADOL AND TYLENOL. INCISION SHANNA, LUIS E IN PLACE, WELL APPROXIMATED. NO BM THIS SHIFT, VOIDING QS.
--- NOTE | 2018-09-06 05:41 | NUR ---
VSS AND RECORDED. I&O'S ALSO COMPLETE. TERESA DRAIN EMPTIED, 30 MLS SEROSANGUINEOUS IN COLOR. DRESSING CDI. NO CHANGES OR CONCERNS REGARDING ABD INCISION. WELL APPROXIMATED, SPANISH MEDICAL INTERPRETER, LUIS E NOTED. ROOM TIDED. CALL LIGHT AND REHABILITATION CASEWORKER PUMP BUTTON IN REACH. NO FURTHER NEEDS.
--- NOTE | 2018-09-06 08:07 | NUR ---
IN TO SEE PT. PT AWAKE, ALERT AND ORIENTED X3. EDUCATION PROVIDED TO PT REGARDING GARDE MANAGER USE. PT RECEPTIVE TO GARDE MANAGER EDUCATION AND DEMONSTRATES PROPER SELF USE. PT REPORTS ABD PAIN IS 6/10, SHE USED GARDE MANAGER INDEPENDENTLY FOR THIS PAIN. PT DENIES NAUSEA. DIET ADVANCED TO FULL LIQUIDS, BREAKFAST ORDERED. CPOX INTACT, 02 SAT LEVEL 95%. NO NEEDS AT THIS TIME. CALL LIGHT WITHIN REACH.
--- NOTE | 2018-09-06 09:36 | NUR ---
CALLED TO REPORT PATIENT IS DROWSY RESP RATE 12 BPM. CARE TEAM DISCUSSED PAIN PLAN IN AM MEETING, SUGGEST TORDOL, TYLENOL, IV POSSIBLE D/C CONTINUOUS ELECTRICAL TECHNOLOGY INSTRUCTOR DOSE. SAID TO D/C CONTINUOUS ELECTRICAL TECHNOLOGY INSTRUCTOR DOSE, AND GIVE TYLENOL NEEDED IV PER ORDER,NO TORDOL.
--- NOTE | 2018-09-06 09:39 | NUR ---
PATRICIA PHARMACY ASSISTED IN D/C CONTINUOUS ELECTRIC METER INSPECTOR DOSE AT THIS TIME PER TELEPHONE ORDER
--- NOTE | 2018-09-06 10:55 | NUR ---
GOMEZ PURI CHARGE AND MYSELF STOPPED THE 2MG CONTINUOUS RATE ON MORPHINE BELT CONVEYOR DRIER. PT EDUCATION PROVIDED.
--- NOTE | 2018-09-06 11:11 | NUR ---
THIS RN ASSUMING CARE OF PT. REPORT RECEIVED FROM GOMEZ FERNANDES. PT RESTING IN BED AND STATES THE PAIN "IS A LOT WORSE SINCE I ATE." PT ENCOURAGED TO USE PSYCHOLOGICAL OPERATIONS. PT STATES "IT'S NOT ENOUGH." IV TYLENOL GIVEN. WARM PACK PROVIDED. NOON ASSESSMENT DONE. WOUND EDGES APRXIMATED. PT EXPRESSES ANXIETY OVER CA DIAGNOSIS. ONCOLOGY EDUCATION DONE, THERAPUTIC COMMUNICATION. PT ENCOUAGED TO WAIT FOR 'S INSTRUCTIONS AND RESULTS OF TESTING. O2 SATURATION AT 86% ON ROOM AIR. PULSE OXIMITER READJUSTED. PT PLACED ON 1L O2 BY FAUSTINA WITH GOOD RESULTS, O2 SATURATION NOW 95%. PT RESTING AND WATCHING TV. NO ADDITIONAL REQUESTS OR COMPLAINTS. CALL LIGHT WITHIN REACH.
--- NOTE | 2018-09-06 12:28 | NUR ---
PT SITTING UP IN BED, SPEAKING VERY LITTLE. GOMEZ DIEGO IN RM. ASKED PT HOW PAIN WAS-SHE SAID 7. RELAYED THIS TO GOMEZ DIEGO SHE WAS CHARTING. I COULD TELL THAT PT DID NOT WANT TO VISIT, EXTENDED A BLESSING. WILL FOLLOW NEEDED
--- NOTE | 2018-09-06 13:33 | NUR ---
PT AMBULATING IN CRANE. 4 LAPS DONE. PT STOPS AT NURSES STATION AND REQUESTS THAT A NEW IV BE PLACED "BECAUSE THIS ONE WAS BEEPING ALL NIGHT LONG AND IT KEEPS BEEPING." NEW IV TO BE PLACED ONCE PT RETURNS TO ROOM.
--- NOTE | 2018-09-06 13:48 | NUR ---
THIS RN TO ROOM TO DISCUSS IV PLACEMENT WITH PT. PT STATES SHE DOESN'T LIKE THE IV WHERE IT IS "BECUASE IT BEEPS ALL THE TIME, WHENEVER I MOVE." BENEFITS AND RISKS OF NEW PIV DISCUSSED WITH PT. PT VERBALIZES UNDERSTANDING AND STATE SHE WANTS A NEW PIV. PT STATES SHE WOULD LIKE PIV IN RIGHT ARM/HAND. PIV STARTED PER PROTOCOL IN RIGHT HAND, BLOOD RETURN NOTED. FLUID AND SASH FINISHER INFUSION MOVED TO RIGHT HAND PIV SITE. NO ADDITIONAL REQUESTS OR COMPLAINTS AT THIS TIME. PT VISITING WITH FAMILY. CALL LIGHT WITHIN REACH.
--- NOTE | 2018-09-06 16:07 | NUR ---
AFTERNOON ASSESSMENT DUE. PT RESTING IN BED VISITING WITH FRIEND AND DAUGHTER. PT HAS QUESTIONS ABOUT HER PROCEEDURE. QUESTIONS ANSWERED, EDUCATION DONE. PT STATES "I FEEL SO MUCH BETTER NOW THAT I UNDERSTAND WHAT HAPPENED." SBA UP TO RESTROOM. ASSESSMENT DONE. PT REPROTS 4/10 PAIN, PT USING NAME PLATE STAMPER PUMP. PT ENCORUAGED TO DRINK FLUIDS TOLERATED. PT DENIES ADDITIONAL REQUESTS OR COMPLAINTS. CALL LIGHT WITHIN REACH.
--- NOTE | 2018-09-06 18:08 | NUR ---
THIS RN TO ROOM TO CHECK ON PT. PT RESTING WITH EYES CLOSED, RR = 16BPM. O2 SATURATION 99% ON 1L O2 BY NC WITH HR OF 60. FAMILY AT BEDSIDE. NO ADDITIONAL REQUESTS OR COMPLAINTS AT THIS TIME. BED RAILS UP. CALL LIGHT WITHIN REACH.
--- NOTE | 2018-09-06 18:18 | NUR ---
PT HERE POST OP AFTER TRANVERSE COLECTOMY. SBA AND TOLERATING FULL LIQUID DIET WITH SOME PAIN. NO NAUSEA THIS SHIFT. HEDIS REVIEW NURSE IN PLACE, CONTINIOUS RATE REMOVED, PT ACTIVATED DOSE CONTINUES. CPOX 86-95%, CONTINUES TO USE 1L O2 BY NC ESPICIALLY WHEN RESTING. MIDLINE INCISION C/D/I WITH EDGES APROXIMATED. PT UP TO AMBULATE IN HALLS MULTIPLE TIMES. TERESA DRAIN CONTINUES TO SHOW SERIOUS ANGUNIOUS FLUID. VODING QUANTITY SUFFICIENT. PT USES CALL LIGHT APPROPRAITLY.
--- NOTE | 2018-09-06 18:42 | NUR ---
PATIENT UP TO BATHROOM AND BACK TO BED, 1PA. PATIENT IN PAIN, RN NOTIFIED. CALL LIGHT IN REACH. NO FURTHER NEEDS AT THIS TIME.
--- NOTE | 2018-09-06 19:20 | NUR ---
BEDSIDE REPORT RECEIVED FROM GOMEZ DIEGO. PT BACK IN ROOM AFTER AMBULATING IN HALLWAY. IVF INFUSING WNL ORDERED. PT RATES PAIN 7/10 IN ABDOMEN, PUSHING TIME STUDY OBSERVER BUTTON AT THIS TIME. CARTRIDGE REPLACED. PT UP IN CHAIR. CALL LIGHT IN LAP. FAMILY IN ROOM.
--- NOTE | 2018-09-06 21:39 | NUR ---
PT ASSESSMENT COMPLETE. SBA TO RESTROOM FOR VOID. PT RATES PAIN 5/10 IN ABDOMEN, STATES "HEAVY FEELING" IN LOWER ABDOMEN. ABDOMEN SOFT, TENDER, BOWEL TONES ACTIVE X 4. MIDLINE INCISION CDI WITH LUIS E OPEN TO AIR. TERESA DRAINING SS FLUID. PT ASSISTED TO REPOSITION TO SIDE. PRN TYLENOL IV ADMINISTERED. HEAT PACKS IN PLACE. CALL LIGHT IN REACH. VSS. SCDS ON. LIGHTS OFF IN ROOM.
--- NOTE | 2018-09-07 00:19 | NUR ---
CHECKED ON PT, RESTING IN BED WITH EYES CLOSED. APPEARS TO BE SLEEPING. SPO2 WNL ON RA. CONT. PULSE OX IN PLACE PER POLICY. SCDS ON. LIGHTS OFF IN ROOM.
--- NOTE | 2018-09-07 02:20 | NUR ---
CHECKED ON PT. APPEARS TO BE SLEEPING, LYING ON BACK WITH EYES CLOSED. BREATHING EQUAL AND NON-LABORED. SPO2 WNL ON RA, CONT. PULSE OX IN PLACE.
--- NOTE | 2018-09-07 03:44 | NUR ---
CALL LIGHT ANSWERED, PT C/O 10/10 PAIN IN ABDOMEN. INCISION CDI AT MIDLINE OPEN TO AIR, LUIS E INTACT. BOWEL TONES ACTIVE X 4. ABDOMEN SOFT. TENDER WITH PALPATION. TERESA DRAIN EMPTIED 100 MLS SEROSANGUINOUS FLUID. PRN ZOFRAN ADMINISTERED FOR NAUSEA. SBA TO AMBULATE AROUND HALLWAY, PT TOLERATED WELL. PRN PAIN MEDICATION ADMINISTERED AND PT USING DELINEATOR PUMP, PAIN DECREASES TO 5/10 PAIN. PT NOW UP IN CHAIR. WATER AND CALL LIGHT IN REACH. SPO2 WNL ON 1L OXYGEN BY NC. BREATHING SHALLOW. PT BRACING WITH PILLOW INSTRUCTED TO DEEP BREATHE.
--- NOTE | 2018-09-07 06:11 | NUR ---
MD IN PT ROOM. PT UP IN CHAIR. STATES "PAIN IS OKAY, JUST WAKING UP". NO REQUESTS AT THIS TIME. CALL LIGHT IN REACH. IVF INFUSING WNL.
--- NOTE | 2018-09-07 06:26 | NUR ---
PT AMBULATING IN HALLWAY THIS SHIFT X 2. HORTICULTURAL AGENT AND PRN PAIN MEDICATIONS FOR PAIN CONTROL. EDUCATION PROVIDED THROUGHOUT SHIFT, PT ANXIOUS REGARDING PLAN OF CARE. SOME NAUSEA REPORTED THIS SHIFT, NO EMESIS, PRN NAUSEA MEDICATION ADMINISTERED. TERESA DRAIN EMPTIED 100 MLS SS FLUID. MIDLINE INCISION CDI WITH LUIS E. BOWEL TONES ACTIVE X 4, ABD SOFT, TENDER W PALPATION. NO FLATUS NOTED. VOIDING QS.
--- NOTE | 2018-09-07 07:13 | NUR ---
REPORT RECEIVED FROM GOMEZ BURKS. PT RESTING IN BED. CPOX NOT IN PLACE. PT ON ROOM AIR. PT REPORTS 5/10 PAIN. PT ENCORUAGED TO USE HOSE HANDLER. CPOX REPLACED, O2 AT 95% ON ROOM AIR. HR 70. PUMP ALARMING, IV FLUID BAG REPLENISHED. PT DENIES ADDITIONAL REQUESTS OR COMPLAINTS AT THIS TIME. CALL LIGHT WITHIN REACH.
--- NOTE | 2018-09-07 10:01 | NUR ---
MORNING ASSESSMENT AND MEDICATIONS DUE. PT REPORTS 5/10 PAIN THAT "IS WORSE WHEN I EAT." SBA UP TO RESTROOM. PT VOIDS WITHOUT ISSUE. PT UP TO CHAIR. ASSESSMENT DONE. WARM PACK AND APPLE JUICE PROVIDED. MEDICATINOS GIVEN. PT VISITING WITH . NO ADDITIONAL REQUESTS OR COMPLAINTS AT THIS TIME.
--- NOTE | 2018-09-07 10:49 | NUR ---
THIS RN TO ROOM TO CHECK ON PT. PT RATES PAIN AT 4/10 AND STATES SHE HAS NOT USED HER BUSINESS BROKER FOR 45 MINUTES. PT ENCORUAGED TO USE BUSINESS BROKER BUT STATES "I DONT' THINK I NEED IT RIGHT NOW. PT DENIES ADDITONAL REQUESTS OR COMPLAINTS AT THIS TIME. CPOX IN PLACE, O2 AT 94% ON ROOM AIR. NO ADDITIONAL REQUESTS OR COMPLAINS AT THIS TIME. CALL LIGHT WITHIN REACH.
--- NOTE | 2018-09-07 11:18 | NUR ---
NOON ASSESSMENT DUE. THIS RN TO BEDSIDE. PT RESTING IN CHAIR. PT REPORTS 4/10 PAIN AND STATES SHE IS USING HER BIOFUELS PRODUCT MANAGER PUMP LESS. PT FINISHED BREAKFAST, DECREASED PAIN WITH SMALL INFREQUENT BITES. PT ENCORUAGED TO USE BIOFUELS PRODUCT MANAGER PUMP NEEDED. WOUND WNL, EDGES APROXIMATED. NO DRAINAGE NOTED. PT DEMONSTRATES USE OF I.S. REACHING 1750. PT CONTINUES ON 1L O2 BY NC WHILE NAPPING. NO ADDITIONAL REQUESTS OR COMPLAINTS AT THIS TIME. CALL LIGHT WITHIN REACH. FAMILY AT BEDSIDE.
--- NOTE | 2018-09-07 13:58 | NUR ---
THIS RN TO ROOM TO CHECK ON PT. PT RESTING IN BED WITH EYES CLOSED, RESPIRATIONS EVEN AND UNLABORED. O2 SATURATION AT 93% ON 1L BY NC. HR = 63. BED RAILS UP. CALL LIGHT WITHIN REACH.
--- NOTE | 2018-09-07 14:31 | NUR ---
PATIENT IN BED RESTING. CALL LIGHT IN REACH. NO FURTHER NEEDS AT THIS TIME.
--- NOTE | 2018-09-07 14:46 | NUR ---
VISITORS ARRIVED TO SEE PT. PT FOUND UP IN RESTROOM ALONE. PT ASSISTED UP TO CHAIR. FALL PRECAUTIONS REVIEWED WITH PT. PT VERBALIZES UNDERSTANDING. PT NOT REQUIRING O2 WHILE UP AND AWAKE. O2 SATURATION AT 97% ON ROOM AIR. PT REPORTS 5/10 PAIN. PT ENCORUAGED TO USE ELECTRONICS SCALE TESTER. PT VISITING WITH FRIENDS. CALL LIGHT WITHIN REACH.
--- NOTE | 2018-09-07 14:52 | NUR ---
SHOWER OFFERED. PT STATED THAT SHE WOULD CALL WHEN SHE WANTED ONE.
--- NOTE | 2018-09-07 16:31 | NUR ---
PT HERE POST TRANSVERSE COLECTOMY. PT MOVING WITH SBA, AMBULATED MULTIPLE TIMES THIS SHIFT. PT TOLERATING FULL LIQUID DIET THIS SHIFT WITH LESS PAIN. COPX REMAINS IN PLACE. PT CONTINUES TO REQUIRE 1L O2 WHEN NAPPING. PAIN WELL CONTROLED THIS SHIFT WITH STEAM PRESS OPERATOR. MIDLINE INCISION C/D/I WITH EDGES WELL APROXIMATED. VOIDING QUANTITY SUFFICIENT. NO NAUSEA THIS SHIFT. PT USING CALL LIGHT APPROPRIATLY.
--- NOTE | 2018-09-07 18:49 | NUR ---
PT CALL LIGHT ON. PT AWAKENS FROM NAP AND REPORTS PUMP IS ALARMING AND SHE IS IN PAIN. THIS RN TO ROOM. DISTAL OCCLUSION, PUMP RESTARTED. PT ENCOURAGED TO USE CORRECTIONAL MANAGER. PT PUSHES BUTTON. PLAN MADE FOR PAIN CONTROL TONIGHT. PT WOULD LIKE TO BE WOKEN UP FOR PAIN CONTOL REMINDERS Q2 HOURS. PASSED OFF DURING HAND OFF REPORT. PT DENIES ADDITIONAL REQUESTS OR COMPLAINTS. CALL LIGHT WITHIN REACH.
--- NOTE | 2018-09-07 19:20 | NUR ---
CHARGE NURSE ROUNDS. PT IN BED, WITH FAMILY AT BEDSIDE. DENIES NEEDS.
--- NOTE | 2018-09-07 19:39 | NUR ---
BEDSIDE REPORT RECEIVED FROM GOMEZ DIEGO. PT RESTING IN BED VISITING WITH DAUGHTER. RATES PAIN 4-5/10 IN ABDOMEN, "CRAMPING". PT USING CORK WIRER PUMP FOR PAIN AT THIS TIME. IVF INFUSING WNL ORDERED. CALL LIGHT IN REACH. SCDS ON.
--- NOTE | 2018-09-07 19:45 | NUR ---
PT MOVED TO ROOM 114, BETTER VIEW. PT EXPRESSED GRATITUDE WITH HAVING A ROOM WITH A VIEW.
--- NOTE | 2018-09-07 20:44 | NUR ---
PT UP AMBULATING WITH FAMILY, DWAYNE CABAN.
--- NOTE | 2018-09-07 22:27 | NUR ---
ASSESSMENT COMPLETE. VSS. SBA TO RESTROOM FOR VOID. TERESA DRAIN EMPTIED 80 ML SS FLUID. PT C/O RIGHT SIDE PAIN, ABDOMINAL PAIN "CRAMPING". PRN PAIN MEDICATION ADMINISTERED. PT EDUCATED TO USE SHOULDER PAD MOLDER PUMP. BOWEL TONES ACTIVE X 4, ABDOMEN SOFT, TENDER WITH LIGHT PALPATION. INCISION CDI, WELL APPROXIMATED WITH LUIS E. CALL LIGHT IN REACH. ICE WATER, ICE PACK AND WARM PACK PROVIDED.
--- NOTE | 2018-09-08 00:44 | NUR ---
CHECKED ON PT. INDEPENDENT TO RESTROOM FOR VOID AND BACK TO BED. PT RATES PAIN 4/10 IN ABDOMEN/RIGHT SIDE. WARM PACK PROVIDED, PT STATES "THAT REALLY HELPS". CONT. PULSE OX IN PLACE, WNL ON RA. CALL LIGHT IN REACH. PT USING SOFTWARE RELIABILITY ENGINEER PUMP FOR PAIN. LIGHTS OFF IN ROOM.
--- NOTE | 2018-09-08 02:38 | NUR ---
CALL LIGHT ANSWERED, SHEET SORTER PUMP REPLACED. PT RATES PAIN 4/10 IN RUQ. ASSESSMENT COMPLETE. ABDOMEN SOFT, TENDER, BOWEL TONES ACTIVE X 4. PT DENIES FLATUS. TERESA DRAINED EMPTIED 75 ML SEROSANGUINOUS FLUID. IVF INFUSING WNL ORDERED. LIGHTS OFF IN PT ROOM.
--- NOTE | 2018-09-08 05:05 | NUR ---
CHECKED ON PT, RESTING IN BED WITH EYES CLOSED. BREATHING NON-LABORED. CONT. PULSE OX WNL ON RA. LIGHTS OFF IN ROOM.
--- NOTE | 2018-09-08 05:20 | NUR ---
PT C/O PAIN IN RUQ THROUGHOUT SHIFT, CONTROLLED WITH MORPHINE ENVIRONMENTAL SERVICES ASSOCIATE PUMP AND PRN OFIRMEV. TERESA DRAINING SS FLUID. LUIS E WELL APPROXIMATED, MIDLINE INCISION CDI OPEN TO AIR. NO FLATUS NOTED. IVF INFUSING WNL ORDERED. NO C/O NAUSEA. INDEPENDENT IN ROOM, AMBULATING IN HALLWAY THIS SHIFT. CONT. PULSE OX WNL ON RA.
--- NOTE | 2018-09-08 07:50 | NUR ---
BEDSIDE REPORT RECIEVED, PT STATES SHE IS HAVING PAIN AFTER USING HER LIGHT RAIL TRAIN OPERATOR. KIMMIE DYER MEDICATED WITH TYLENOL AT THIS TIME. CALL DOE IS WITHIN REACH.
--- NOTE | 2018-09-08 08:44 | NUR ---
PT WAS JUST GETTING BACK TO BED FROM USING THE BR AND SHE STATES HER PAIN IS A 7/10. PT WAS HELPED INTO BED AND POSITIONED FOR COMFORT AND SHE HAD JUST PUSHER HER SHEET METAL OPERATOR FOR A DOSE OF PAIN MEDICATION. TERESA WAS EMPTIED FOR 90ML OF SEROUS FLUID. THE URINE IS PINK IN COLOR WITH CLOTS NOTED. DURING MY ASSESSMENT THE PT STATES HER PAIN IS NOW IMPROVING AND IS NOW ACCEPTABLE AT REST. SAT IS 98% ON ROOM AIR. WILL NOTIFY THE MD OF THE PT'S URINE STATUS.
--- NOTE | 2018-09-08 08:54 | NUR ---
A MESSAGE WAS LEFT FOR DR BARRERA TO NOTIFY HIM THAT THE PT PINK TINTED COLORED URINE WITH CLOTS NOTED. THE PT STATES SHE IS NOT ON HER PERIOD.
--- NOTE | 2018-09-08 09:01 | NUR ---
TALKED TO IN REGARDS TO BLOOD AND BLOOD CLOTS IN PT URINE. NEW ORDER TO SEND SAMPLE TO LAB AND UPDATE HIM IF THIS CONTINUES.
--- NOTE | 2018-09-08 11:01 | NUR ---
Pt sitting in her chair and states her pain is a 4/10 which is acceptable to her. She however states she at times gets sharp pain that comes and goes. She was notified that she has an order for a ct and that they should be coming to get her shortly. BP is currenlty 118/67.
--- NOTE | 2018-09-08 11:51 | NUR ---
Pt to CT at this time.
--- NOTE | 2018-09-08 12:36 | NUR ---
Pt returned to her room from CT. Pt states she is doing "alright" at this time. Sat 99% on room air and on her cont pulse ox.
--- NOTE | 2018-09-08 12:40 | NUR ---
Pt again voided 400 ml of light pink colored urine with clots noted.
--- NOTE | 2018-09-08 13:52 | NUR ---
PT CONTINUES USING HER ENGLISH PROFESSOR PRN AND STATES WITH IT HER PAIN IS AT AN ACCEPTABLE LEVEL OF A 4/10 AT THIS TIME.
--- NOTE | 2018-09-08 14:28 | NUR ---
PATIENT IS RESTING IN BED. VISITER IN ROOM. CALL LIGHT IN REACH. NO FURTHER NEEDS AT THIS TIME.
--- NOTE | 2018-09-08 15:38 | NUR ---
SUPERVISOR PUMPING STATION DC'D AND PUMP CLEARED WITH JAXSON DYER.
--- NOTE | 2018-09-08 15:39 | NUR ---
PT SLEEPING AT THIS TIME, SAT 95% ON ROOM AIR.
--- NOTE | 2018-09-08 16:43 | NUR ---
PT SLEEPING AT THIS TIME.
--- NOTE | 2018-09-08 17:17 | NUR ---
PT STATES SHE WOKE UP IN SEVERE PAIN. SHE WAS MEDICATED BY JAXSON DYER. SHE NOW STATES HER PAIN LEVEL IS NOW A 5/10. PO PAIN MEDICATIONS WILL BE GIVEN SHORTLY AFTER SHE EATS SOMETHING. SHE DENIES ANY NAUSEA AT THIS TIME.
--- NOTE | 2018-09-08 17:21 | NUR ---
pt spouse came to nurses station to report is (the patient) was in a lot of severe pain and demanded to know why the pain medication was taken away. this rn reviewed new pain medication plan and took 1mg i.v. 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 also we plan to transition pt to po pain medications as she tolerates her diet, this will give long more even pain management/coverage. breanna primary rn into room to comtinue edcuation and administer po norco.
--- NOTE | 2018-09-08 17:56 | NUR ---
PT STATES HER PAIN IS IMPROVING BUT CONTINUES TO AT TIMES HAVE SHOOTING PAINS. WILL CONTINUE TO MONITOR.
--- NOTE | 2018-09-08 18:32 | NUR ---
Pt now rates her pain at a 6/10 and states; "I don't know" when she was asked if her pain level is acceptable to her. Pt instructed to call when she feels she needs additional pain medications.
--- NOTE | 2018-09-08 18:54 | NUR ---
PT CRYING WHEN I ENTERED HER ROOM. SHE RATES HER PAIN AT A 6/10 AND WAS MEDICATED ORDERED. PT AGAIN REMINDED TO CALL IF HER PAIN IS INCREASING. PT HAD VOIDED AND IT APPEARS CLEAR YELLOW WITH A FEW VERY SMALL CLOTS NOTED.
--- NOTE | 2018-09-08 19:32 | NUR ---
DR BARRERA CALLED AND UPDATED TO THE PT'S STATUS. NEW ORDERS GIVEN, SEE EMAR.
--- NOTE | 2018-09-08 19:43 | NUR ---
REPORT RECEIVED, PT RESTING IN BED, SURGICAL SITE VISUALIZED, C/D/I, TERESA DRAIN DRAINING WNL, SCD'S ON, PT DENIES ANY NEEDS AT THIS TIME, PT NOTED TO BE ANXIOUS, GOMEZ RUTLEDGE CONTACTED DR. BARRERA AND RECEIVED ORDER FOR PRN ATIVAN, SEE EMAR. CALL LIGHT WITHIN REACH. FALL PRECAUTIONS IN PLACE.
--- NOTE | 2018-09-08 21:15 | NUR ---
SCHEDULED MEDS GIVEN, ASSESSMENT COMPLETE. PT DROWSY FROM PRN ATIVAN HOWEVER ANXIETY HAS DECREASED AND PT HAS BEEN ABLE TO SLEEP, PT REMAINS ON CPOX, O2 SAT 95%, ON RA, PT DENIES ANY NEEDS AT THIS TIME. INCISION IS C/D/I, TERESA DRAIN DRAINED 50 MLS OF SEROUS DRAINAGE. LS CLEAR, CMS INTACT. CALL LIGHT WITHIN REACH. SCD'S ON. FALL PRECAUTIONS IN PLACE. PT INSTRUCTED TO USE CALL LIGHT PRIOR TO GETTING UP TO VOID DUE TO DROWSINESS, BED ALARM ON WELL.
--- NOTE | 2018-09-08 22:29 | NUR ---
PT UP TO BATHROOM, VOIDED 500 MLS OF CLEAR YELLOW URINE, ONE VERY SMALL BLOOD CLOT WAS NOTED BUT NO SIGNS OF BEAN BLOOD, PT BACK TO BED, HEATING PAD APPLIED TO ABDOMEN FOR PAIN, PT C/O 4/10 CONSTANT PAIN IN ABDOMEN BUT ALSO STATES THAT SHE IS HAVING FREQUENT CRAMPING THAT CAUSES PAIN TO RISE TO A 6 OR 8/10, PT STATES "IT FEELS LIKE STABBING", PT GIVEN PRN PAIN MEDICATION PER EMAR WELL. PT DENIES ANY FURTHER NEEDS AT THIS TIME, IV FLUIDS INFUSING PER EMAR WNL, CALL LIGHT WITHIN REACH. FAMILY AT BEDSIDE.
--- NOTE | 2018-09-09 00:33 | NUR ---
PT RESTING IN BED, EYES CLOSED, BREATHS EVEN, UNLABORED, NO REQUESTS AT THIS TIME, CALL LIGHT WITHIN REACH. IV FLUIDS INFUSING PER EMAR. ON CPOX, O2 SAT 94%, ON RA.
--- NOTE | 2018-09-09 03:01 | NUR ---
PT RESTING IN BED, EYES CLOSED, BREATHS EVEN, UNLABORED, NO REQUESTS AT THIS TIME, CALL LIGHT WITHIN REACH. FALL PRECAUTIONS IN PLACE.
--- NOTE | 2018-09-09 04:12 | NUR ---
PT AWAKE, C/O 5/10 PAIN, REQUESTING PRN PAIN MEDICATION, PT GIVEN PRN PAIN MEDICATION, TERESA DRAIN EMPTIED OF 80 MLS OF SEROUS DRAINAGE, PT VOIDED 300 MLS OF CLEAR YELLOW URINE. PT BACK TO BED. EYES CLOSED, BREATHS EVEN, UNLABORED, ON CPOX, O2 SAT 94% ON RA, IV FLUIDS INFUSING PER EMAR WNL. CALL LIGHT WITHIN REACH.
--- NOTE | 2018-09-09 05:01 | NUR ---
PT AOX4 THIS SHIFT, APPROPRIATE, PT'S VSS, UO QS, BT ACTIVE, NO FLATUS OR STOOL, TERESA DRAIN HAS DRAINED 295 MLS OF SEROUS DRAINAGE THUS FAR, SMALL AMOUNT OF LEAKING AROUND EDGES OF TERESA DRAIN SITE, GAUZE APPLIED. MIDLINE INCISION C/D/I, PT RECEIVED PRN PAIN MEDICATION X2 THIS SHIFT RELATED TO ABDOMINAL PAIN AND CRAMPING, PT ALSO RECEIVED X1 DOSE OF ATIVAN RELATED TO ANXIETY REGARDING PAIN CONTROL. IV FLUIDS INFUSING PER EMAR WNL. PT HAS BEEN MOSTLY INDEPENDENT IN ROOM. SCD'S ON. USES CALL LIGHT APPROPRIATELY.
--- NOTE | 2018-09-09 07:20 | NUR ---
REPORT RECEIVED FROM GRADUATE ENGINEER RN. PT IN BED WITH EYES CLSOED. CPOX IN PLACE. 93% ON RA. HEART RATE 56. RESPIRATIONS EQUAL AND NONLABORED. D5LR AT 75 INFUSING WNL. CALL LIGHT IN REACH.
--- NOTE | 2018-09-09 09:35 | NUR ---
PT UP AMBULATING IN HALLS. TOLERATING WELL.
--- NOTE | 2018-09-09 15:44 | NUR ---
PT UP TO BATHROOM. MED LIQUID BM AND FLATUS PASSED. PT REPORTS INCREASE IN PAIN AFTER BOWEL MOVEMENT. PRN PAIN MEDICATION GIVEN. BACK TO BED. ICE PACK PROVIDED FOR ABDOMEN. CALL LIGHT IN REACH.
--- NOTE | 2018-09-09 15:47 | NUR ---
WENT IN TO PATIENT'S ROOM AND ASKED HER TO CALL WHEN SHE WOUULD LIKE TO TAKE A SHOWER. SO I CAN COVER HER IV.
--- NOTE | 2018-09-09 20:00 | NUR ---
PATIENT SITTING IN BED VISITING WITH FAMILY AND WATCHING TV. PAIN 4/4 AND HALEY CONTROL.
--- NOTE | 2018-09-09 21:29 | NUR ---
VITALS DONE AND CHARTED. BEDSIDE TABLE AND CALL LIGHT IN REACH.
--- NOTE | 2018-09-09 22:00 | NUR ---
CALLED DR. BARRERA NORCO IS NOT WORKING FOR PATIENT, WAS GIVEN ORDERS TO INCREASE NORCO TO 10/325MG AND TO REMEMBER i CAN GIVE HER ATIVAN. THOUGHT THE DILADID ORDER IV HAD BEEN DC'D, FOUND IT WAS NOT SO PATIENT GOT 1MG IV ATIVAN AND 1MG IV DILAUDID. PATIENT RESTING QUIETLY AT THIS TIME PAIN BACK TO 4/10, PULSE OX PLACED BACK ON AND 1L/NC BECAUSE SATS DROPPED TO 88%. BACK TO 92% ON 1L/NC.
--- NOTE | 2018-09-10 | NUR ---
PATIENT RESTING SUPINE, EYES CLOSED, RESPIRATIONS REGULAR AND EVEN, SATS 95% ON 1L/NC, WITH A HR=67.
--- NOTE | 2018-09-10 03:55 | NUR ---
PATIENT AWOKE COMPLAINING OF 7/10 ABD PAIN AGAIN. 10/325MG NORCO X1 GIVEN PO AND 1MG IV ATIVAN. PATIENT RESTING AGAIN QUIETLY AT THIS TIME.
--- NOTE | 2018-09-10 07:27 | NUR ---
REPORT RECEIVED FROM CONSTRUCTION ELECTRICIAN RN. PT IN BE WITH EYES CLOSED. CPOX IN PLACE. D5LR AT 55 INFUSING. CALL LIGHT IN REACH.
--- NOTE | 2018-09-10 09:39 | NUR ---
ASSESSMENT COMPLETED. PT UP TO CHAIR FOR BREAKFAST. TERESA EMPTIED FOR 70MLS. LUNGS CLEAR. PAIN 4/10 WITH INTERMITTENT SHARP PAIN TO RIGHT ABDOMEN. PRN PAIN MEDICATION GIVEN. DENIES N/V. PASSING FLATUS AND STOOL. CALL LIGHT IN REACH. DENEIS FURTHER NEEDS.
--- NOTE | 2018-09-10 12:25 | NUR ---
PT OUT AMBULATING HALLS. TOLERATING WELL. ABLE TO DO 2 LAPS.
--- NOTE | 2018-09-10 14:18 | NUR ---
LUIS E REMOVED PER ORDER. PT REPORTING INCREASE IN PAIN TO RIGHT ABDOMEN 4/10. PRN PAIN MEDICAION ADMINISTERED. EDUCATION ON EMPTYING TERESA DRAIN. 90MLS OUT. CALL LIGHT IN REACH. PT REFUSED LUNCH BUT WILL EAT DINNER.
--- NOTE | 2018-09-10 15:04 | NUR ---
PATIENT DID 2 LAPS AROUND MED SURG AROUND 1230 TODAY.
--- NOTE | 2018-09-10 15:07 | NUR ---
ASKED HER IF SHE WOULD LIKE TO TAKE A SHOWER AND SHE SAID NOT RIGHT NOW SO I AM GOING TO ASK HER LATER.
--- NOTE | 2018-09-10 18:21 | NUR ---
PT HAD GOOD DAY. PAIN WELL CONTROLLED WITH 20MG NORCO. LAST GIVEN AT 1400. BOWEL TONES ACTIVE. HAVING BOWEL MOVEMENTS AND FLATUS. TOLERATIGN AND EATING 100% OF LOW FIBER DIET. PT WITH SOME AXIETY BUT NO NEED FOR ATIVAN THIS SHIFT. PT OU AMBULATING HALLS. DENEIS N/V. EVERY OTHER STAPLE REMOVED TODAY PER ORDER.TERESA WITH 200ML OUT THIS SHIFT. D5LR AT 55ML/HR INFUSING. PT WITH QS U/O.
--- NOTE | 2018-09-10 18:57 | NUR ---
PATIENT REFUSED SHOWER TODAY BUT SHE SAID SHE MIGHT TAKE A SHOWER TOMORROW.
--- NOTE | 2018-09-10 20:00 | NUR ---
PATIENT IN BED QUIETLY WATCHING TV. NEW ICE WATER GIVEN. NOOTHER NEEDS AT THE MOMMENT.
--- NOTE | 2018-09-10 21:45 | NUR ---
OCCUPATIONAL HEALTH TECHNICIAN ROUNDING NOTE. RN AND PRIMARY RN TO ROOM TO VISUALIZE RASH REPORTED PER PT. REDDENED AREA OUTLINE BY PRIMARY RN. PT REPORTS HAVING REMOVED ADHESIVE DRESSING FROM AREA RECENTLY. AREA TO R ANTICUBITAL WHERE IV DRESSING HAD BEEN REMOVED IS ALSO REDDENED. APPEARS TO BE IRRITATION FROM ADHESIVE. PT EXPRESSES CONCERN OVER HARDENED AND PAINFUL AREA TO R ANTICUBITAL WHERE IV WAS REMOVED. EDCUATION PROVIDED BY THIS HEARING HEALTHCARE PRACTITIONER AND PRIMARY RN. PT DENIES FURTHER QUESTIONS OR NEEDS AT THIS TIME. CALL LIGHT IN REACH. WHITE BOARD UPDATED.
--- NOTE | 2018-09-10 22:43 | NUR ---
GOMEZ Hernández did VS and I&Os.
--- NOTE | 2018-09-10 23:30 | NUR ---
PATIENT RESTING QUIETLY SUPINE, RESPIRATIONS REGULAR AT 18, EYES CLOSED.
--- NOTE | 2018-09-11 01:43 | NUR ---
PATIENT HAS COMPLAINT OF 5/10 ABD PAIN AND 2 NORCO GIVEN. RASH OUTLINED EARLIER ON PATIENT'S RIGHT SIDE RESOLVING. TERESA DRAINED AND TUBING STRIPPED FOR PATIENT AND SHE HAD NO OTHER NEEDS. 65MLS REMOVED FROM TERESA.
--- NOTE | 2018-09-11 03:06 | NUR ---
PATIENT RESTING QUIETLY ON HER LEFT SIDE, EYES CLOSED, RESPIRATIONS REGULAR AND EVEN AT 18.
--- NOTE | 2018-09-11 05:54 | NUR ---
PATIENT HAS HAD 2 NORCO TWICE DURING THE NIGHT FOR 5/10 ABD PAIN, WHICH HAS RELIEVED THE PAIN BOTH TIMES AND ALLOWED THE PATIENT TO SLEEP. IV WNL AND INFUSING. ABD INCISION WELL APPROXIMATED MID-LINE AND TERESA DRAINING SEROUS FLUID.
--- NOTE | 2018-09-11 07:22 | NUR ---
PT UP AMBULATING IN HALLS. REPORTS MINIMAL PAIN WITH ACTIVITY.
--- NOTE | 2018-09-11 07:52 | NUR ---
REPORT RECEIVED FROM TECHNICAL SUPPORT DIRECTOR RN. PT OUT IN HALLS AMBULATING. REPORTS PAIN 06/27. FEDERICO ROSSI.
--- NOTE | 2018-09-11 08:40 | NUR ---
MARIAM'D PATIENTS IV IN LEFT AC, SHE IS CURRENTLY TAKING A SHOWER
[2018-09-11] MEDS ORDERED: NORCO 10-325 T1 EACH PO (09:54)
[2018-09-11] MEDS ORDERED: ADVIL200 M1 PO (09:55)
--- NOTE | 2018-09-11 10:30 | NUR ---
PT REPORTING 4/10 PAIN IN ABDOMEN. PRN PAIN MEDICATION GIVEN. PHARMACY IN TO DISCUSS DISCHARGE MEDICATIONS. REMAINING STABLES REMOVED PER MD ORDER. PT TOLERATED WELL. INCISION WELL APPROXIMATED. NO REDNESS, SWELLING OR S/SX OF INFECTION AT MIDLINE OR TERESA DRAIN SITE. BOWEL TONES ACTIVE. PT PASSING FLATUS AND STOOL. TOLLERATING LOW FIBER DIET WITH NO N/V. PT ABLE TO TEACH BACK TERESA EMPTYING AND CARE. VITAL SIGNS TAKEN AND STABLE. QUESTIONS AND CONCERNS ADRESSED.
--- NOTE | 2018-09-12 09:23 | DS ---
[facility] [address], [place] [address] Signed ADMISSION DATE: 09/03/2018 DISCHARGE DATE: 09/11/2018 FINAL DIAGNOSES: 1. Stage III transverse colon cancer. 2. Possible hematuria. PROCEDURES: 1. Extended right colectomy. 2. Takedown splenic flexure. HISTORY OF PRESENT ILLNESS: Haresh is a 48-year-old female, who had developed mid epigastric abdominal pain. Her CT scan showed a tumor in the slightly distal transverse colon with a positive lymphadenopathy. Colonoscopy confirmed her tumor along with a dysplastic lesion in the right colon. She therefore presented to the hospital on this occasion for her extended right colectomy. HOSPITAL COURSE: Haresh was taken to the operating room on 09/03/2018 and underwent her uncomplicated extended right colectomy with takedown the splenic flexure. We did a staple [id number] ileocolonic anastomosis. We left a drain in the lesser sac across the top of the pancreas near the area where middle colic vein joins the superior mesenteric vein. She has done well for the most part intraoperatively and postoperatively. She was using quite a bit of narcotics I think mainly for anxiety. We added some Ativan and that helped. We have weaned off the narcotics and she is continued to improve and regained her GI function. At one point, we thought she had some blood in her urine. Consequently that generated a CT IVP, which was unremarkable. We later discovered the stress of the surgery had started up her monthly cycle. We did consult our urologist by phone, Dr. Rebekah Villalobos. In the meantime, Haresh has continued to improve. She is now tolerating a regular diet. We left her drain in place, it is still around 350 to 375 mL of thin serosanguineous fluid a day. We checked the drain amylase and drain creatinine levels, and they were both fine. All brianna have been removed. Her abdominal exam is benign. She had a bowel movement and now had some diarrhea. At this point, she has reached discharge status. DISCHARGE PLANS AND MEDICATIONS: Haresh is going to be discharged home with a prescription for [place] 10/325 one tablet p.o. q.6 hours p.r.n. for severe postoperative pain. We will dispense 20 tablets with no refills. She can use Tylenol, ibuprofen, Aleve for vykj-di-ezyeehwr postoperative pain. We are going to leave the drain in place and she is going to continue to record Electronically Signed By: DEIRDRE BARRERA MD 09/12/18 0923 PATIENT NAME: HARESH SILVA DISCHARGE SUMMARY DATE OF : 70 REPORT #: [id number] PHYSICIAN: DEIRDRE BARRERA MD PCP: TAMMIE LILLY MD REPORT IS CONFIDENTIAL AND NOT TO BE RELEASED WITHOUT AUTHORIZATION [address] [address] Signed that each day. She told me today, she has an appointment to see me in three days, which is fine. We may still have to leave the drain in place and see her a week afterwards. We have discussed the concept of chemotherapy and Port a Catheter placement. In the meantime, we are going to let her have a regular diet and she can perform her activities of daily living including walking up and down stairs and showering and bathing as usual. We will have asked her not to lift over 25 pounds the 1st month and 50 pounds for a 2nd month and after that no restrictions. She has expressed understanding and agrees above plan. Deirdre Barrera MD [facility]/MODL /[id number] cc: MD Rebekah Bryson, MD Tammie Lilly MD Copies: DEIRDRE BARRERA MD,TAMMIE HENNING MD, MD ~ Electronically Signed By: DEIRDRE BARRERA MD 09/12/18 0923 PATIENT NAME: HARESH SILVA DISCHARGE SUMMARY DATE OF : 70 REPORT #: [id number] PHYSICIAN: DEIRDRE BARRERA MD PCP: TAMMIE LILLY MD REPORT IS CONFIDENTIAL AND NOT TO BE RELEASED WITHOUT AUTHORIZATION
== END 2018-09-11 10:43 | disposition home or self-care (01) | DRG 330 ==
LOC: DSVR 09-03 08:50 → MS 09-03 08:50
PROVIDERS: ADMIT Colon & Rectal Surgery
PROC: 0DTF0ZZ Resection of Right Large Intestine, Open Approach (ICD-10-PCS; principal; 2018-09-03 10:00)
DX: C18.4 Malignant neoplasm of transverse colon (principal); C77.2 Secondary and unspecified malignant neoplasm of intra-abdominal lymph nodes; K63.5 Polyp of colon; R31.9 Hematuria, unspecified; E83.42 Hypomagnesemia; E83.51 Hypocalcemia; F17.210 Nicotine dependence, cigarettes, uncomplicated; F41.9 Anxiety disorder, unspecified; Z88.5 Allergy status to narcotic agent; Z79.891 Long term (current) use of opiate analgesic; Z79.899 Other long term (current) drug therapy
CPT/HCPCS: 00790; 36415; 64488; 74178; 76942; 80048; 81001; 82150; 82565; 83735; 84100; 85025; 94762; J0131; J0610; J0690; J1100; J1170; J1644; J1885; J2060; J2250; J2270; J2405; J2704; J2795; J3010; J3475; J7060; J7120; Q9967

== ENCOUNTER 2018-10-15 12:41 | Emergency (ER) | payer BC ==
[~2018-10-15] VITALS: Ht 165.1 cm; Wt 63.5 kg
[~2018-10-15 12:41] MED LIST changes: +ADVIL200 M1 PO; +NORCO 10-325 T1 EACH PO; +NORCO 5-325 TA1 EACH PO; +TYLENOL325 M1 PO
--- OUTSIDE RECORDS SUMMARY | 2018-10-15 12:44 | XMS ---
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 Evelyn has no Care Guidelines for this patient. Andrew VISIT COUNT (12 MO.) 2 [facility] TOTAL 2 NOTE: Visits indicate total known visits. ED/C VISIT TRACKING (12 MO.) 10/15/2018 12:42 [facility] [place] TYPE: Emergency COMPLAINT: - POST OP PROBLEM,BURNING 08/16/2018 03:45 [facility] [place] TYPE: Emergency COMPLAINT: - ABD PAIN DIAGNOSES: - Nicotine dependence, unspecified, uncomplicated - Other skilled nursing (current) drug therapy - Epigastric pain - Allergy status to narcotic agent status INPATIENT VISIT TRACKING (12 MO.) 09/03/2018 08:50 [facility] [place] TYPE: Medical Surgical COMPLAINT: - TRANSVERSE COLECTOMY DIAGNOSES: - Anxiety disorder, unspecified - Other kitman (current) drug therapy - halfway (current) use of opiate analgesic - Hematuria, unspecified - Polyp of colon - Anxiety disorder, unspecified - Hypomagnesemia - Other skilled nursing (current) drug therapy - Hematuria, unspecified - halfway (current) use of opiate analgesic - Hypocalcemia - Nicotine dependence, cigarettes, uncomplicated - Allergy status to narcotic agent status - Nicotine dependence, cigarettes, uncomplicated - Hypocalcemia - Hypomagnesemia - Allergy status to narcotic agent status - Secondary and unspecified malignant neoplasm of intra-abdominal lymph nodes - Malignant neoplasm of transverse colon - Polyp of colon [email or web address]
[2018-10-15] MEDS ORDERED: LORAZEPAM1 MG PO (12:56)
[2018-10-15] MEDS ORDERED: DEXAMETHASONE4 MG PO (12:57)
[2018-10-15] MEDS ORDERED: ONDANSETRON ODT8 MG PO (12:57)
== END 2018-10-15 15:23 | disposition home or self-care (01) ==
LOC: ED 12:41
DX: R10.9 Unspecified abdominal pain (principal); Z85.038 Personal history of other malignant neoplasm of large intestine; Z87.891 Personal history of nicotine dependence; Z90.89 Acquired absence of other organs; Z88.5 Allergy status to narcotic agent
CPT/HCPCS: 74177; 80053; 85025; 85610; 85730; 86850; 86900; 86901; 96360; 99285-25; J7030

== ENCOUNTER 2019-02-14 17:51 | Emergency (ER) | payer BC ==
[~2019-02-14] VITALS: Ht 165.1 cm; Wt 74.4 kg
--- OUTSIDE RECORDS SUMMARY | ~2019-02-14 | XMS | Clinical Summary ---
Demographics + + + | Address | [address] | | | [place] [address] | + + + | Home Phone | | + + + | Preferred Language | Unknown | + + + | Marital Status | Unknown | + + + | Jain Affiliation | Unknown | + + + | Race | Unknown | + + + | Ethnic Group | Unknown | + + + Author + + + | Author | [facility] | | | and [place] | + + + | Organization | [facility] | | | [...] Team Providers + +------+ + | Care Floral Clerk Name | Role | Phone | + [...] +-------+--------+ +--------+-------+---------+------+ | BCBS | BCBS | [id number] | 04/20/19 | | | PPO | [...] | 1971 | [phone] | [place] [address] | | | jeffry | | | 8 (Home) | | + +--------+ +--------+ + +"
--- OUTSIDE RECORDS SUMMARY | ~2019-02-14 | XMS | Clinical Summary ---
Demographics + + + | Address | [address] | | | [place] [address] | + + + | Home Phone | | + + + | Preferred Language | Unknown | + + + | Marital Status | Unknown | + + + | Sikh Affiliation | Unknown | + + + | Race | Unknown | + + + | Ethnic Group | Unknown | + + + Author + + + | Author | [facility] | | | and [place] | + + + | Organization | [facility] | | | and [...] Team Providers + +------+ + | Care Facilities Maintenance Assistant Name | Role | Phone | + [...] +-------+--------+ +--------+-------+---------+------+ | BCBS | BCBS | [id number] | 04/20/19 | | | PPO | [...] | 1971 | [phone] | [place] [address] | | | jeffry | | | 8 (Home) | | + +--------+ +--------+ + +"
[~2019-02-14 17:51] MED LIST changes: +DEXAMETHASONE4 MG PO; +FAMOTIDINE40 MG PO; +LORAZEPAM1 MG PO; +OMEPRAZOLE20 M1 PO; +ONDANSETRON ODT8 MG PO; +PEPTO-BISM262 MG/15 PO
--- OUTSIDE RECORDS SUMMARY | 2019-02-14 17:54 | XMS ---
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 Care History Medical/Surgical 10/18/2018 [facility] - Patient is currently established with [facility]. If patient is seen in the ED during business hours. Please contact CHWs at [facility]. Care Recommendation: This patient has had 5 or more Emergency Department visits in the last 12 months.\T\nbsp; Patient requires education on the scope and purpose of the ED as an acute care provider not a Primary Care Provider and should not be utilized for chronic conditions.\T\nbsp; These are guidelines and the provider should exercise clinical judgment when providing care. E.D. VISIT COUNT (12 MO.) [address] [facility] TOTAL 3 NOTE: Visits indicate total known visits. ED/UCC VISIT TRACKING (12 MO.) 02/14/2019 17:[address] [facility] [place] TYPE: Emergency COMPLAINT: - FLU SYMPTOMS 10/15/2018 12:[address] [facility] [place] TYPE: Emergency COMPLAINT: - POST OP PROBLEM,BURNING DIAGNOSES: - Personal history of nicotine dependence - Allergy status to narcotic agent status - Personal history of malignant neoplasm of large intestine - Acquired absence of other organs - Unspecified abdominal pain 08/16/2018 03:45 [facility] [place] TYPE: Emergency COMPLAINT: - ABD PAIN DIAGNOSES: - Nicotine dependence, unspecified, uncomplicated - Other group home (current) drug therapy - Epigastric pain - Allergy status to narcotic agent status INPATIENT VISIT TRACKING (12 MO.) 09/03/2018 08:50 [facility] [place] TYPE: Medical Surgical COMPLAINT: - TRANSVERSE COLECTOMY DIAGNOSES: - Anxiety disorder, unspecified - Other group home (current) drug therapy - custodial (current) use of opiate analgesic - Hematuria, unspecified - Polyp of colon - Anxiety disorder, unspecified - Hypomagnesemia - Other group home (current) drug therapy - Hematuria, unspecified - emt intermediate (current) use of opiate analgesic - Hypocalcemia - Nicotine dependence, cigarettes, uncomplicated - Allergy status to narcotic agent status - Nicotine dependence, cigarettes, uncomplicated - Hypocalcemia - Hypomagnesemia - Allergy status to narcotic agent status - Secondary and unsp malignant neoplasm of intra-abd nodes - Malignant neoplasm of transverse colon - Polyp of colon [email or web address]
--- NOTE | 2019-02-14 21:58 | EKG ---
[facility] [address] [place] [address] Signed Sinus tachycardia Possible Left atrial enlargement Borderline ECG Confirmed by TAMMIE LILLY MD ([id number]) on 02/14/2019 9:57:44 PM Electronically Signed By: TAMMIE LILLY MD 02/14/19 2158 PATIENT NAME: HARESH SILVA Electrocardiogram DATE OF : 70 PHYSICIAN: TAMMIE LILLY MD REPORT #: [id number] REPORT IS CONFIDENTIAL AND NOT TO BE RELEASED WITHOUT AUTHORIZATION
== END 2019-02-14 21:20 | disposition home or self-care (01) ==
LOC: ED 17:51
DX: B34.9 Viral infection, unspecified (principal); R50.9 Fever, unspecified; Z85.038 Personal history of other malignant neoplasm of large intestine; Z88.5 Allergy status to narcotic agent; Z79.899 Other long term (current) drug therapy
CPT/HCPCS: 71045; 80053; 81001; 83605; 85025; 87502; 93005; 93010; 94640; 96361; 96374; 99284-25; J7030

== ENCOUNTER 2019-02-17 01:30 | Emergency (ER) | payer BC ==
[~2019-02-17] VITALS: Ht 165.1 cm; Wt 74.8 kg
--- OUTSIDE RECORDS SUMMARY | ~2019-02-17 | XMS | Clinical Summary ---
Demographics + + + | Address | [address] | | | [place] [address] | + + + | Home Phone | | + + + | Preferred Language | Unknown | + + + | Marital Status | Unknown | + + + | Yarsani Affiliation | Unknown | + + + | Race | Unknown | + + + | Ethnic Group | Unknown | + + + Author + + + | Author | [facility] | | | and [place] | + + + | Organization | [facility] | | | and [...] Team Providers + +------+ + | Care Vessel Scrapper Helper Name | Role | Phone | + +------+ + | Keegan Delgado MD | PCP | | + +------+ + Allergies Not on File Medications Not on file Active Problems Not on file Social History + +-------+ +--------+------+ | Tobacco [...] recent travel history available. | + + Last Filed Vital Signs Not on file Plan of Treatment + + + + + | Health Maintenance | Due Date | Last Done | Comments | + + + + + | Vaccine: | | | | | Dtap/Tdap/Td (1 - | 0 | | | | Tdap) | | | | + + + + + | Cervical Cancer | | | | | Screening (Pap) | 1 | | | + + + + + | Breast Cancer | | | | | Screening | 6 | | | + + + + + | Vaccine: Influenza | | | | | (#1) | 9 | | | + + + + + Results Not on filefrom Last 3 Months Insurance +-------+--------+ +--------+-------+---------+------+ | Payer | Benefi | Subscriber | Effect | Phone | Address | Type | | | t Plan | ID | tanisha | | | | | | / | | Dates | | | | | | Group | | | | | | +-------+--------+ +--------+-------+---------+------+ | BCBS | BCBS | [id number] | 04/20/19 | | | PPO | | | OOS | | 19-Pre | | | | | | PPO | | sent | | | | +-------+--------+ +--------+-------+---------+------+ + +--------+ +--------+ + + | Guarantor Name | Accoun | Relation to | Date | Phone | Billing Address | | | t Type | Patient | of | | | | | | | | | | + +--------+ +--------+ + + | Kathy Zuleta | Person | Self | [birth year] | [address] | | | al/Fam | | 1971 | [phone] | [place] [id number] | | | jeffry | | | 8 (Home) | | + +--------+ +--------+ + +"
--- OUTSIDE RECORDS SUMMARY | ~2019-02-17 | XMS | Clinical Summary ---
Demographics + + + | Address | [address] | | | [place] [address] | + + + | Home Phone | | + + + | Preferred Language | Unknown | + + + | Marital Status | Unknown | + + + | Nondenominational Affiliation | Unknown | + + + | Race | Unknown | + + + | Ethnic Group | Unknown | + + + Author + + + | Author | [facility] | | | and [place] | + + + | Organization | [facility] | | | [...] Team Providers + +------+ + | Care Specification Manager Name | Role | Phone | [...] +-------+--------+ +--------+-------+---------+------+ | BCBS | BCBS | [id number] | 04/20/19 | | | PPO | [...] | 1971 | [phone] | [place] [address] | | | jeffry | | | 8 (Home) | | + +--------+ +--------+ + +"
--- OUTSIDE RECORDS SUMMARY | 2019-02-17 01:32 | XMS ---
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 Care History Medical/Surgical 02/15/2019 [facility] - PATIENT HAS AN APT WITH DR LILLY ON 02/22/19. 10/18/2018 [facility] - Patient is currently established with [facility]. If patient is seen in the ED during business hours. Please contact CHWs at [facility]. Care Recommendation: This patient has had 5 [...] providing care. E.D. VISIT COUNT (12 MO.) [address] [facility] TOTAL 4 NOTE: Visits indicate total known visits. ED/UCC VISIT TRACKING (12 MO.) 02/17/2019 01:30 [facility] TYPE: Emergency COMPLAINT: - PORT ISSUE 02/14/2019 17:52 [facility] TYPE: Emergency COMPLAINT: - FLU SYMPTOMS 10/15/2018 12:42 [facility] TYPE: Emergency [...] - Nicotine dependence, unspecified, uncomplicated - Other longterm (current) drug therapy - Epigastric pain - Allergy status to narcotic agent status INPATIENT VISIT TRACKING (12 MO.) 09/03/2018 08:50 [facility] TYPE: Medical Surgical COMPLAINT: - TRANSVERSE COLECTOMY DIAGNOSES: - Anxiety disorder, unspecified - Other longterm (current) drug therapy - skilled nursing (current) use of opiate analgesic - Hematuria, unspecified - Polyp of colon - Anxiety disorder, unspecified - Hypomagnesemia - Other longterm (current) drug therapy - Hematuria, unspecified - it network engineer (current) 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
== END 2019-02-17 04:40 | disposition home or self-care (01) ==
LOC: ED 01:30
DX: T80.810A Extravasation of vesicant antineoplastic chemotherapy, initial encounter (principal); Z85.038 Personal history of other malignant neoplasm of large intestine; Z88.5 Allergy status to narcotic agent; Z79.899 Other long term (current) drug therapy
CPT/HCPCS: 96374; 99283-25

== ENCOUNTER 2019-08-21 12:02 | Emergency (ER) | payer BC ==
[~2019-08-21] VITALS: Ht 165.1 cm; Wt 77.1 kg
--- OUTSIDE RECORDS SUMMARY | ~2019-08-21 | XMS | Encounter Summary ---
Demographics + + + | Address | [address] | | | [place] [address] | + + + | Home Phone | | + + + | Preferred Language | Unknown | + + + | Marital Status | Unknown | + + + | Christianity Affiliation | Unknown | + + + | Race | Unknown | + + + | Ethnic Group | Unknown | + + + Author + + + | Author | [facility] | | | and [place] | + + + | Organization | [facility] | | | and [place] | + + + | Address | Unknown | + + + | Phone | Unavailable | + + + Support + + +---------+ + | Name | Relationship | Address | Phone | + + +---------+ + | Mickie Hernandez | ECON | Unknown | | + + +---------+ + Care Team Providers + +------+ + | Care Clinical Quality Manager Name | Role | Phone | + +------+ + PCP | Unavailable | + +------+ + Encounter Details +--------+ + + + + | Date | Type | Department | Care Team | Description | +--------+ + + + + | 10/11/ | Hospital | [facility] | | | | 1992 | Encounter | [facility] | | | | | CENTER [address] | | | | | | [place] | | | | | | [address] | | | | | | [phone] | | | +--------+ + + + + Social History + +-------+ +--------+------+ | Tobacco Use | Types | Packs/Day | Years | Date | | | | | Used | | + +-------+ +--------+------+ | Never Assessed | | | | | + +-------+ +--------+------+ + + + | Sex Assigned at | Date Recorded | | | | + + + | Not on file | | + + + + + + + | Job Start Date | Occupation | Industry | + + + + | Not on file | Not on file | Not on file | + + + + + + + + | Travel History | Travel Start | Travel End | + + + + + + | No recent travel history available. | + + documented as of this encounter Plan of Treatment Not on filedocumented as of this encounter Visit Diagnoses Not on filedocumented in this encounter"
--- OUTSIDE RECORDS SUMMARY | ~2019-08-21 | XMS | Encounter Summary ---
Demographics + + + | Address | [address] | | | [place] [address] | + + + | Home Phone | | + + + | Preferred Language | Unknown | + + + | Marital Status | Unknown | + + + | Bahai Affiliation | Unknown | + + + | Race | Unknown | + + + | Ethnic Group | Unknown | + + + Author + + + | Author | [facility] | | | and [place] | + + + | Organization | [facility] | | | and [...] Team Providers + +------+ + | Care Needle Punch Machine Operator Name | Role | Phone | + +------+ + PCP | Unavailable | + +------+ + Encounter Details +--------+ + + + + | Date | Type | Department | Care Team | Description | +--------+ + + + + | 10/11/ | Hospital | [facility] | | | | 1992 | Encounter | [facility] | | | | | | CENTER [address] | | | | | | [place] | | | | | | [address] | | | | | | [phone] | | | +--------+ + + + [...]
--- OUTSIDE RECORDS SUMMARY | ~2019-08-21 | XMS | Clinical Summary ---
Demographics + + + | Address | [address] | | | [place] [address] | + + + | Home Phone | | + + + | Preferred Language | Unknown | + + + | Marital Status | Unknown | + + + | Islam Affiliation | Unknown | + + + | Race | Unknown | + + + | Ethnic Group | Unknown | + + + Author + + + | Author | [facility] | | | and [place] | + + + | Organization | [facility] | | | [...] Team Providers + +------+ + | Care Director Energy Name | Role | Phone | + [...] | | | Dtap/Tdap/Td (1 - | 2 | | | | Tdap) | | | | + + + + + | Cervical Cancer | | | | | Screening (Pap) | 1 | | | + + + + + | Breast Cancer | | | | | Screening | 6 | | | + + + + + | Vaccine: Influenza | | | | | (Season Ended) | 0 | | | + + + + [...] +-------+--------+ +--------+-------+---------+------+ | BCBS | BCBS | [id number] | 04/20/19 | | | PPO | [...] | 1971 | [phone] | [place] [address] | | | jeffry | | | 8 (Home) | | + +--------+ +--------+ + +"
--- OUTSIDE RECORDS SUMMARY | ~2019-08-21 | XMS | Clinical Summary ---
Demographics + + + | Address | [address] | | | [place] [address] | + + + | Home Phone | | + + + | Preferred Language | Unknown | + + + | Marital Status | Unknown | + + + | Scientologist Affiliation | Unknown | + + + | Race | Unknown | + + + | Ethnic Group | Unknown | + + + Author + + + | Author | [facility] | | | and [place] | + + + | Organization | [facility] | | | [...] Team Providers + +------+ + | Care Sweatband Separator Name | Role | Phone | + [...] +-------+--------+ +--------+-------+---------+------+ | BCBS | BCBS | [id number] | 04/20/19 | | | PPO | [...] | 1971 | [phone] | [place] [address] | | | jeffry | | | 8 (Home) | | + +--------+ +--------+ + +"
[~2019-08-21 12:02] MED LIST changes: +ADRUCIL500 MG/10 IV; +ATIVAN2 MG/1 ML IV; +DEXAMETHASO4 MG/1 ML IV; -DEXAMETHASONE4 MG PO; +FAMOTIDINE20 MG/2 ML IV; -FAMOTIDINE40 MG PO; +LEUCOVORIN CAL350 MG INJ; +ONDANSETRON4 MG/2 M1 IV
--- OUTSIDE RECORDS SUMMARY | 2019-08-21 12:04 | XMS ---
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 Care History Medical/Surgical 02/15/2019 [facility] - PATIENT HAS AN APT WITH DR LILLY ON 02/22/19. 10/18/2018 [facility] - Patient is currently established with [facility]. If patient is seen in the ED during business hours. Please contact CHWs at [facility]. Care Recommendation: This patient has had [...] care. E.D. VISIT COUNT (12 MO.) 4 JOAO Hernandez TOTAL 4 NOTE: Visits indicate total known visits. 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 - Extravasation of vesicant antineoplastic chemotherapy, initia - Extravasation of vesicant antineoplastic chemotherapy, initia - Personal history of other malignant neoplasm of large intesti - Allergy status to narcotic agent status - Disorientation, unspecified 02/14/2019 17:52 JO[facility] Mosqueda [place] TYPE: Emergency COMPLAINT: - FLU SYMPTOMS DIAGNOSES: - Fever, unspecified - 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 - Viral infection, unspecified - Allergy status to narcotic agent status - Personal history of other malignant neoplasm of large intesti 10/15/2018 12:42 JOAO Mosqueda [place] TYPE: Emergency COMPLAINT: - POST OP PROBLEM,BURNING DIAGNOSES: - Personal history of nicotine dependence - Allergy status to narcotic agent status - Personal history of other malignant neoplasm of large intesti - Acquired absence of other organs - Unspecified abdominal pain INPATIENT VISIT TRACKING (12 MO.) 09/03/2018 08:50 JOAO Mosqueda [place] TYPE: Medical Surgical COMPLAINT: - TRANSVERSE COLECTOMY DIAGNOSES: - Anxiety disorder, unspecified - Other longterm (current) drug therapy - terminal operations manager (current) use of opiate analgesic - Hematuria, unspecified - Polyp of colon - Anxiety disorder, unspecified - Hypomagnesemia - 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
[2019-08-21] MEDS ORDERED: ATIVAN1 MG PO (14:48)
== END 2019-08-21 15:09 | disposition home or self-care (01) ==
LOC: ED 12:02
DX: K92.1 Melena (principal); Z87.891 Personal history of nicotine dependence; Z88.5 Allergy status to narcotic agent
CPT/HCPCS: 80053; 81001; 82378; 83615; 83690; 85025; 96374; 96375; 99284-25; J2060

== ENCOUNTER 2019-12-17 13:42 | Emergency (ER) | payer BC ==
[~2019-12-17] VITALS: Ht 165.1 cm; Wt 80.7 kg
[~2019-12-17 13:42] MED LIST changes: +ATIVAN1 MG PO
--- OUTSIDE RECORDS SUMMARY | 2019-12-17 13:46 | XMS ---
PreManage Notification: HARESH SILVA Security Authorization Coordinator Events No recent Security Events currently on file CRITERIA MET - [facility] - Has Care Guidelines - PDMP CARE PROVIDERS MAXX [facility] Internal Medicine 10/18/2018-Current PHONE: [phone] Evelyn has no Care Guidelines for this patient. Care History Medical/Surgical 02/15/2019 [facility] - PATIENT HAS AN APT WITH DR LILLY ON 02/22/19. 10/18/2018 [facility] - Patient is currently established with [facility]. If patient is seen in the ED during business hours. Please contact CHWs at [facility]. Care Recommendation: This patient has [...] known visits. 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 - Extravasation of vesicant antineoplastic chemotherapy, initia - Extravasation of vesicant antineoplastic chemotherapy, initia - Personal history of other malignant neoplasm of large intesti - Allergy status to narcotic agent status - Disorientation, unspecified 02/14/2019 17:52 JO[facility] Mosqueda [place] TYPE: Emergency COMPLAINT: - FLU SYMPTOMS DIAGNOSES: - Fever, unspecified - Other prison (current) drug therapy - Viral infection, unspecified - Allergy status to narcotic agent status - Personal history of other malignant neoplasm of large intesti INPATIENT VISIT TRACKING (12 MO.) No inpatient visits to display in this time frame [email or web address]
[2019-12-17] MEDS ORDERED: HYDROCODON-ACE1 EA10 PO (14:47)
== END 2019-12-17 17:06 | disposition home or self-care (01) ==
LOC: ED 13:42
DX: R10.2 Pelvic and perineal pain (principal); Z87.891 Personal history of nicotine dependence; Z88.5 Allergy status to narcotic agent; Z79.899 Other long term (current) drug therapy
CPT/HCPCS: 80053; 81001; 83690; 83735; 84703; 85025; 85651; 99283; A9270

== ENCOUNTER 2020-07-12 06:55 | Day surgery (SDC) | payer BC ==
[~2020-07-12] VITALS: Ht 167.6 cm; Wt 80.0 kg
--- NOTE | ~2020-07-12 | OR ---
[facility] [address], [place] [address] Draft DATE OF OPERATION: 07/12/2020 SURGEON: Deirdre Barrera MD PREOPERATIVE DIAGNOSES: 1. Stage III colon cancer (August 2018). 2. Extended right colectomy. 3. Personal history of colonic polyps. 4. Unremarkable colonoscopy in 2019. POSTOPERATIVE DIAGNOSES: 1. Minimal internal hemorrhoids. 2. Ileocolonic anastomosis (85 cm). PROCEDURE: Colonoscopy without biopsy. ESTIMATED BLOOD LOSS: None. INDICATIONS: Haresh is a 50-year-old female, who was diagnosed with a stage III colon cancer back in August 2018. She also had a dysplastic polyp in the proximal right colon. She consequently underwent an extended right colectomy. She has a stapled vgkk-rb-cerm ileocolonic anastomosis around 80 to 85 cm from the anal verge. She has been through the chemotherapy and has done quite well. She had her port catheter removed. She came back last year and had an unremarkable colonoscopy. She returns now for followup colonoscopy for surveillance. She has been doing well and has no lower GI complaints. In the office, I gave her a pamphlet on colonoscopy and she understands the nature of that test. She understands there is risk including, but not limited to gas bloating, crampy abdominal pain, bleeding, perforation requiring surgery, and missed diagnosis. She also understands the need for the IV conscious sedation. She had expressed understanding and wished to proceed. PROCEDURE IN DETAIL: Haresh was taken into our endoscopy suite and placed in the left lateral decubitus position. She was given a total of 7 mg of Versed and 150 mcg of fentanyl to cover the case. A digital rectal exam was performed and this was unremarkable. The adult colonoscope was introduced and advanced under direct visualization of the camera without difficulty. We could see a previous polypectomy scar in the rectum. We found her PATIENT NAME: HARESH SILVA OPERATIVE REPORT DATE OF : 70 REPORT #: [id number] PHYSICIAN: DEIRDRE BARRERA MD PCP: EVA RAVI MD REPORT IS CONFIDENTIAL AND NOT TO BE RELEASED WITHOUT AUTHORIZATION [facility] [address], [place] [address] Draft ileocolonic anastomosis. There was a single staple exposed, which is quite common. No granulation tissue or ulcerations. No evidence of any recurrent lesions around the anastomosis. The scope was then slowly withdrawn. We found a couple areas of particulate stool matter in the colon. She told me she ate noodles earlier in the day. We will have to remind her to maintain a strict liquid diet for her future bowel preps. No other lesions throughout the entire colon or rectum noted. No diverticulosis. Upon retroflexion of scope, she has very small internal hemorrhoid columns. After this, the gas was suctioned out. The colonoscope removed. Haresh tolerated the procedure quite well. RECOMMENDATIONS: I will see Haresh back in one year for a followup colonoscopy. We will remind her to be very vigilant with her bowel prep. Deirdre Barrera MD ALB/MODL /[id number] cc: MD Eva Bryson MD Lohith Veerappa Reddy, MD Copies: DEIRDRE BARRERA MD,TAMMIE MIJARES MD, MD ~ PATIENT NAME: HARESH SILVA OPERATIVE REPORT DATE OF : 70 REPORT #: [id number] PHYSICIAN: DEIRDRE BARRERA MD PCP: EVA RAVI MD REPORT IS CONFIDENTIAL AND NOT TO BE RELEASED WITHOUT AUTHORIZATION
[~2020-07-12 06:55] MED LIST changes: +HYDROCODON-ACE1 EA10 PO; +HYDROCODON-ACE1 EAC8 PO
--- NOTE | 2020-07-12 08:43 | NUR ---
07/12/20 0843 Ani Marcos 0832 PATIENT ARRIVES TO PACU AWAKE, BUT ASLEEP WHEN NOT STIMULATED. RESP EVEN AND UNLABORED, OXYGEN OFF ON ARRIVAL, ROOM AIR SATS >90%.
== END 2020-07-12 09:15 | disposition home or self-care (01) ==
LOC: DS 06:55 → OPS 06:55 → DS 08:15 → OPS 09:15
PROVIDERS: ATTEND Colon & Rectal Surgery
PROC: 0DJD8ZZ Inspection of Lower Intestinal Tract, Via Natural or Artificial Opening Endoscopic (ICD-10-PCS; principal; 2020-07-12 08:15)
DX: Z12.11 Encounter for screening for malignant neoplasm of colon (principal); Z86.010 Personal history of colon polyps; Z98.890 Other specified postprocedural states; Z85.038 Personal history of other malignant neoplasm of large intestine
CPT/HCPCS: 84703; 99153; G0500; J2250; J2405; J3010; J7121

== ENCOUNTER 2022-01-21 05:47 | Day surgery (SDC) | payer BC ==
[~2022-01-21] VITALS: Ht 165.1 cm; Wt 80.1 kg
[~2022-01-21 05:47] MED LIST changes: +DICLOFENAC SODI75 MG PO; +TYLENOL EXTRA500 MG PO
[2022-01-21] MEDS ORDERED: ASPIRIN325 MG PO (06:52)
--- NOTE | 2022-01-21 07:58 | NUR ---
01/21/22 0757 Mildred Markham 075-PATIENT ARRIVED TO PACU ON 2L NC RR EVEN. PATIENT LAYING LEFT LATERAL REACTIVE TO VERBAL STIMULI DENIES PAIN OR NAUSEA. ABDOMEN SOFT. IVF INFUSING. PATIENT VERY DROWSY DOZES BACK TO SLEEP.
--- NOTE | 2022-01-21 08:27 | NUR ---
PT ALERT, ORIENTED AND VISIBLY UPSET. PT ADMITTED GREAT ANXIETY WITH TODAY'S PROCEDURE-RECOVERING CANCER PT. DS MARKETING REPRESENTATIVE HAD DIFFICULTY WITH IV. SPENT TIME WITH PT ENCOURGING AND COMFORTING HER. PT REQUESTED PRAYER. WILL FOLLOW NEEDED
--- NOTE | 2022-01-22 08:32 | OR ---
[facility] [address], [place] [address] Signed DATE OF OPERATION: 01/21/2022 SURGEON: Deirdre Barrera MD PREOPERATIVE DIAGNOSES: 1. History of stage III colon cancer status post extended right colectomy 2018 (age 48). 2. Personal history of colonic polyps. 3. Stapled bfae-mw-znee anastomosis at 85 cm. 4. Moderate internal hemorrhoids. POSTOPERATIVE DIAGNOSES: 1. 4 mm polyp at 45 cm. 2. Minimal to moderate internal hemorrhoids. 3. Gbbj-sq-kkpl stapled anastomosis at 85 cm. PROCEDURE: Colonoscopy with hot biopsy. ESTIMATED BLOOD LOSS: None. INDICATIONS: Haresh is a 51-year-old female, who came to us in August of 2018 at the age of 48. She ended up with a stage III transverse colon cancer. She also had a cancerous polyp in the right colon. She has had other polyps including her rectum. We performed her extended right colectomy then in August of 2018. Thirteen out of the 35 lymph nodes were positive. She has been through chemotherapy with Dr. Eva Wharton. Her kgcs-X-jqwagorp has been removed. I helped her with a followup colonoscopy in August of 2019 at the age of 49. She did well with Versed and fentanyl. The ileocolonic anastomosis was unremarkable at 85 cm. She did have moderate internal hemorrhoids. We repeated the colonoscopy in June 2020 at the age of 50. Again, minimal to moderate internal hemorrhoids with an unremarkable anastomosis at 85 cm. Once again, she did well with Versed and fentanyl. She comes back now for followup colonoscopy. She said she is eating well. She has been having good bowel movements. She stopped smoking and gained a little weight. She has had her blood work and x-rays that have all been fine. In the office, I gave her a pamphlet on colonoscopy. She recalls the test quite well. There is risk including, but not limited to gas bloating, crampy abdominal pain, bleeding, perforation requiring surgery, and missed diagnosis. We also reviewed the need for IV conscious sedation. She had expressed understanding and wished to proceed. Electronically Signed By: DEIRDRE BARRERA MD 01/22/22 0832 PATIENT NAME: HARESH SILVA OPERATIVE REPORT DATE OF : 70 REPORT #: [id number] PHYSICIAN: DEIRDRE BARRERA MD PCP: EVA RAVI MD REPORT IS CONFIDENTIAL AND NOT TO BE RELEASED WITHOUT AUTHORIZATION [facility] [address], [place] [address] Signed PROCEDURE NOTE: Haresh was taken into our endoscopy suite and placed in the left lateral decubitus position. She was given 6 mg of Versed and 125 mcg of fentanyl to cover the case. A digital rectal exam was performed. She has no external hemorrhoids. She has good sphincter tone. There were no masses. The adult colonoscope was introduced and advanced all around the anastomosis at 85 cm. We could easily see it is a stapled ooza-fs-qjej anastomosis. The entire anastomosis is quite healthy without any evidence of recurrent cancer. We turned and looked up the terminal ileum only a short distance. The scope was then slowly withdrawn. She had an excellent bowel prep. We found a tiny 4 mm polyp back at 45 cm. It was easily removed with the hot biopsy forceps. There was no diverticulosis. The rectum was unremarkable. Upon retroflexion of the scope, she again has minimal to moderate internal hemorrhoid tissue. After this, the gas was suctioned out colonoscope removed. Haresh tolerated the procedure quite well. RECOMMENDATIONS: I will see Haresh back in my office in 7 to 14 days to review her results. It looks like she will have a followup colonoscopy in three years. Deirdre Barrera MD ALB/MODL /[id number] cc: MD Deirdre Mccray MD Robert G Johnson, MD Copies: EVA WHARTON MD, ANDREW L MD JOHNSON, ROBERT D DMD ~ Electronically Signed By: DEIRDRE BARRERA MD 01/22/22 0832 PATIENT NAME: HARESH SILVA OPERATIVE REPORT DATE OF : 70 REPORT #: [id number] PHYSICIAN: DEIRDRE BARRERA MD PCP: EVA RAVI MD REPORT IS CONFIDENTIAL AND NOT TO BE RELEASED WITHOUT AUTHORIZATION
== END 2022-01-21 09:01 | disposition home or self-care (01) ==
LOC: OPS 05:47 → DS 05:47 → OPS 07:30 → DS 07:30 → OPS 09:01
PROVIDERS: ATTEND Colon & Rectal Surgery
PROC: 0DBE8ZZ Excision of Large Intestine, Via Natural or Artificial Opening Endoscopic (ICD-10-PCS; principal; 2022-01-21 07:30)
DX: K64.8 Other hemorrhoids (principal); K63.5 Polyp of colon; Z85.038 Personal history of other malignant neoplasm of large intestine; Z98.0 Intestinal bypass and anastomosis status; Z90.49 Acquired absence of other specified parts of digestive tract; Z87.891 Personal history of nicotine dependence
CPT/HCPCS: 99153; G0500; J2250; J2405; J3010; J7121

== ENCOUNTER 2022-07-03 16:10 | Emergency (ER) | payer BC ==
[~2022-07-03] VITALS: Ht 165.1 cm; Wt 78.9 kg
[~2022-07-03 16:10] MED LIST changes: +ASPIRIN325 MG PO
[2022-07-03] MEDS ORDERED: ONDANSETRON ODT4 MG PO (19:15)
== END 2022-07-03 19:25 | disposition home or self-care (01) ==
LOC: ED 16:10
DX: R10.30 Lower abdominal pain, unspecified (principal); R11.2 Nausea with vomiting, unspecified; R19.7 Diarrhea, unspecified; Z87.891 Personal history of nicotine dependence; Z88.5 Allergy status to narcotic agent; Z79.82 Long term (current) use of aspirin
CPT/HCPCS: 36415; 80053; 81003; 83690; 85025; 96365; 99284-25; A9270; J7030